=== PATIENT | female | born 1990 | race Caucasian/White ===

== ENCOUNTER 2016-07-28 22:12 | Emergency (ER) | payer SELFPAY ==
[2016-07-28 22:27] VITALS: RESP 18
[2016-07-28] MEDS ORDERED: IPRATROPIUM-ALBUTEROL 3 ML NEB INHALATION STA (22:46)
--- NOTE | 2016-07-28 22:48 | ED ---
URI HPI - General Chief Complaint: Upper Respiratory Infection Stated Complaint: FARHAT/x3 Time Seen by Provider: 07/28/16 22:31 Source: patient, RN notes reviewed Mode of arrival: wheelchair Limitations: no limitations - History of Present Illness Initial Comments: Patient is a 26-year-old female presents to the emergency room for evaluation of cough. Patient states she's had productive cough for the past 3 days. Patient does admit having history of asthma. Patient states she uses albuterol updrafts. Patient stated it is not helping her symptoms. Patient states been having increased shortness of breath due to coughing. Patient states that she also has been having a headache. Patient denies any dizziness or chest pain. Patient denies nausea vomiting, diarrhea or constipation. Patient denies receiving her influenza vaccine this year. Patient denies smoking. Patient states she's been having on and off chills and hot flashes. - Related Data Home Medications Medication Instructions Recorded Confirmed Albuterol Nebulized [Ventolin 2.5 mg INHALATION RT-Q6H PRN 12/16/15 07/28/16 Nebulized] Etonogestrel [Nexplanon ( 68 mg SQ DIRECTED 12/16/15 07/28/16 control implant)] Ibuprofen [Motrin] 600 mg PO Q6HR PRN 07/28/16 07/28/16 guaiFENesin [Mucinex] 600 mg PO Q12H PRN 07/28/16 07/28/16 Previous Rx's Medication Instructions Recorded Albuterol Nebulized [Ventolin 2.5 mg INHALATION Q6HR PRN #30 nebu 07/29/16 Nebulized] Azithromycin [Zithromax Z-pack] 250 mg PO DIRECTED #6 tab 07/29/16 predniSONE 40 mg PO DAILY #4 tab 07/29/16 Allergies Allergy/AdvReac Type Severity Reaction Status Date / Time tetanus and diphtheria AdvReac Unknown Verified 07/28/16 22:37 toxoids Childhood [tetanus & diphtheria toxoids] Review of Systems ROS Statement: Those systems with pertinent positive or pertinent negative responses have been documented in the HPI. ROS Other: All systems not noted in ROS Statement are negative. Past Medical History Past Medical History: Asthma History of Any Multi-Drug Resistant Organisms: None Reported Past Surgical History: Section, Cholecystectomy Past Anesthesia/Blood Transfusion Reactions: No Reported Reaction Past Psychological History: Anxiety Smoking Status: Former smoker Past Alcohol Use History: Occasional Past Drug Use History: None Reported - Past Family History Father Family Medical History: Coronary Artery Disease (CAD) General Exam - General Exam Comments Initial Comments: Sitting in exam room, no acute distress. Limitations: no limitations General appearance: alert, in no apparent distress Head exam: Present: atraumatic, normocephalic, normal inspection Eye exam: Present: normal appearance ENT exam: Present: normal exam Neck exam: Present: normal inspection Respiratory exam: Present: wheezes. Absent: respiratory distress Cardiovascular Exam: Present: normal rhythm, tachycardia, normal heart sounds GI/Abdominal exam: Present: soft, normal bowel sounds. Absent: distended, tenderness, guarding, rebound, rigid Extremities exam: Present: normal inspection Back exam: Present: normal inspection Neurological exam: Present: alert, oriented X3, CN II-XII intact, normal gait Psychiatric exam: Present: normal affect, normal mood Skin exam: Present: warm, dry, intact, normal color. Absent: rash Course Vital Signs 07/28/16 07/28/16 07/28/16 22:24 23:08 23:17 Temperature 99.5 F Pulse Rate 117 H 112 H 112 H Respiratory 18 Rate Blood Pressure 137/98 O2 Sat by Pulse 94 L Oximetry 07/28/16 07/29/16 23:59 00:48 Temperature 100.2 F H Pulse Rate 115 H Respiratory 18 18 Rate Blood Pressure 142/72 O2 Sat by Pulse 94 L 96 Oximetry Medical Decision Making - Medical Decision Making Patient is a 26-year-old female presents emergency room for evaluation of cough. Influenza negative. Chest x-ray significant for right middle lobe infiltrates. Patient will be placed on antibiotics and prednisone. Patient states she understands everything that was discussed with her. Return parameters discussed. - Lab Data Lab Results 07/28/16 Range/Units 22:55 Influenza Type A RNA Not Detected (Not Detectd) Influenza Type B (PCR) Not Detected (Not Detectd) - Radiology Data Radiology results: report reviewed, image reviewed Disposition Clinical Impression: Pneumonia Disposition: HOME SELF-CARE Condition: Good Instructions: Asthma (ED) Additional Instructions: Take medications as directed. Take Tylenol or Motrin as needed for fever. Please follow up with primary care provider in 1-2 days. If any new symptom arises or symptoms worsen, return to ER as soon as possible. Prescriptions: Albuterol Nebulized [Ventolin Nebulized] 2.5 mg INHALATION Q6HR PRN #30 nebu PRN Reason: Shortness Of Breath Azithromycin [Zithromax Z-pack] 250 mg PO DIRECTED #6 tab predniSONE 40 mg PO DAILY #4 tab Referrals: Anthony Rojas MD [Primary Care Provider] - 1-2 days Time of Disposition: 00:23
[2016-07-29 00:01] VITALS: BP 142/72; PULSE 115; TEMP 100.2
[2016-07-29] MEDS ORDERED: predniSONE 20 MG TAB PO STA (00:25)
--- NOTE | 2016-07-29 01:13 | XR ---
EXAMINATION TYPE: XR chest 2V DATE OF EXAM: 07/28/2016 11:47 PM COMPARISON: NONE HISTORY: History of cough congestion. TECHNIQUE: Frontal and lateral views of the chest are obtained. FINDINGS: Faint opacities are noted in the right lung base and is suspicious for mild active lung infiltrates i n the right middle lobe of lung. No pneumothorax or pleural effusion is noted. The cardiac silhouette size is within normal limits. The osseous structures are intact. IMPRESSION: Suspected mild active infiltrates in the right middle lobe of lung.
== END 2016-07-29 00:48 | disposition home or self-care (01) ==
LOC: EC 22:12
DX: J18.9 Pneumonia, unspecified organism (principal); J45.909 Unspecified asthma, uncomplicated; Z79.899 Other long term (current) drug therapy; Z79.3 Long term (current) use of hormonal contraceptives; Z88.7 Allergy status to serum and vaccine; Z87.891 Personal history of nicotine dependence
CPT/HCPCS: 94640; 87502; 71020; 99284; J7512

== ENCOUNTER 2016-11-29 12:55 | Observation (INO) | payer OTHER ==
[2016-11-29] MEDS ORDERED: methylPREDNISolone SOD SUCCI 125 MG/2 ML VIAL IV STA (13:46)
[2016-11-29] MEDS ORDERED: IPRATROPIUM-ALBUTEROL 3 ML NEB INHALATION STA ×2 (13:46→15:28)
--- NOTE | 2016-11-29 13:57 | ED ---
SOB HPI - General Chief Complaint: Shortness of Breath Stated Complaint: FARHAT/Asthma Time Seen by Provider: 11/29/16 13:25 Source: patient, RN notes reviewed Mode of arrival: ambulatory Limitations: no limitations - History of Present Illness Initial Comments: This is a 26-year-old female with a history of asthma states she had the onset yesterday of shortness of breath with a cough with yellow phlegm and some fevers chills and sweats during the evening. She has some chest tightness. She denies any nausea vomiting or other symptoms at this time. She is a former smoker she quit about 2 years ago. She does state that her home medications including nebulizer did not help. Additionally the patient denies any changes ( she does have a Norplant implant. MD Complaint: shortness of breath - Related Data Home Medications Medication Instructions Recorded Confirmed Albuterol Nebulized [Ventolin 2.5 mg INHALATION RT-Q6H PRN 12/16/15 11/29/16 Nebulized] Ibuprofen [Motrin] 400 mg PO Q6HR PRN 11/29/16 11/29/16 Loratadine [Claritin] 10 mg PO DAILY 11/29/16 11/29/16 Allergies Allergy/AdvReac Type Severity Reaction Status Date / Time tetanus and diphtheria AdvReac Unknown Verified 11/29/16 14:05 toxoids Childhood [tetanus & diphtheria toxoids] Review of Systems ROS Statement: Those systems with pertinent positive or pertinent negative responses have been documented in the HPI. ROS Other: All systems not noted in ROS Statement are negative. Past Medical History Past Medical History: Asthma History of Any Multi-Drug Resistant Organisms: None Reported Past Surgical History: Section, Cholecystectomy Past Anesthesia/Blood Transfusion Reactions: No Reported Reaction Past Psychological History: Anxiety Smoking Status: Former smoker Past Alcohol Use History: Occasional Past Drug Use History: None Reported - Past Family History Father Family Medical History: Coronary Artery Disease (CAD) General Exam - General Exam Comments Initial Comments: This is a well-developed well-nourished awake alert oriented 3 female she is audibly wheezing. Limitations: no limitations General appearance: alert, anxious, in distress Head exam: Present: atraumatic, normocephalic, normal inspection Eye exam: Present: normal appearance, PERRL, EOMI. Absent: scleral icterus, conjunctival injection, periorbital swelling ENT exam: Present: normal exam, mucous membranes moist Neck exam: Present: normal inspection. Absent: tenderness, meningismus, lymphadenopathy Respiratory exam: Present: wheezes, accessory muscle use, decreased breath sounds. Absent: respiratory distress, rales, rhonchi, stridor, chest wall tenderness Cardiovascular Exam: Present: normal rhythm, tachycardia, normal heart sounds. Absent: systolic murmur, diastolic murmur, rubs, gallop, clicks GI/Abdominal exam: Present: soft, normal bowel sounds. Absent: distended, tenderness, guarding, rebound, rigid Extremities exam: Present: normal inspection, full ROM, normal capillary refill. Absent: tenderness, pedal edema, joint swelling, calf tenderness Back exam: Present: normal inspection Neurological exam: Present: alert, oriented X3, CN II-XII intact Psychiatric exam: Present: normal affect, normal mood Skin exam: Present: warm, dry, intact, normal color. Absent: rash Course Vital Signs 11/29/16 11/29/16 11/29/16 13:00 13:48 13:55 Temperature 99.0 F Pulse Rate 119 H 117 H 120 H Respiratory 24 Rate Blood Pressure 188/97 O2 Sat by Pulse 94 L Oximetry 11/29/16 11/29/16 11/29/16 14:38 16:04 16:20 Temperature Pulse Rate 118 H 80 88 Respiratory 20 Rate Blood Pressure 162/96 O2 Sat by Pulse 93 L Oximetry - Reevaluation(s) Reevaluation #1: 11/29/16 15:29 Reevaluation patient to responsive therapy reveals very minimal improvement in aeration she still has diffuse wheezing she states she feels no better than when she got here. Further medication will be Reevaluation #2: 11/29/16 16:41 Evaluation of the patient after the repeat updraft reveals minimal improvement patient still has the [place] wheezing and dyspnea. Even with talking she still has dyspnea. She will be admitted and placed on IV antibiotics around-the- clock nebulizer treatment. The patient will be admitted to the hospitalist Medical Decision Making - Lab Data Result diagrams: 11/29/16 13:55 11/29/16 13:55 Lab Results 11/29/16 11/29/16 11/29/16 Range/Units 13:55 13:55 13:55 WBC 16.7 H (3.8-10.6) k/uL RBC 5.23 (3.80-5.40) m/uL Hgb 17.2 H (11.4-16.0) gm/dL Hct 48.1 H (34.0-46.0) % MCV 91.9 (80.0-100.0) fL MCH 32.8 (25.0-35.0) pg MCHC 35.7 (31.0-37.0) g/dL RDW 12.5 (11.5-15.5) % Plt Count 333 (150-450) k/uL Neutrophils % 89 % Lymphocytes % 6 % Monocytes % 3 % Eosinophils % 1 % Basophils % 1 % Neutrophils # 14.8 H (1.3-7.7) k/uL Lymphocytes # 1.0 (1.0-4.8) k/uL Monocytes # 0.5 (0-1.0) k/uL Eosinophils # 0.2 (0-0.7) k/uL Basophils # 0.1 (0-0.2) k/uL PT (9.0-12.0) sec INR (<1.1) APTT (22.0-30.0) sec Sodium 143 (137-145) mmol/L Potassium 3.7 (3.5-5.1) mmol/L Chloride 107 (98-107) mmol/L Carbon Dioxide 24 (22-30) mmol/L Anion Gap 12 mmol/L BUN 7 (7-17) mg/dL Creatinine 0.54 (0.52-1.04) mg/dL Est GFR (MDRD) Af Amer >60 (>60 ml/min/1.73 sqM) Est GFR (MDRD) Non-Af >60 (>60 ml/min/1.73 sqM) Glucose 104 H (74-99) mg/dL Calcium 10.0 (8.4-10.2) mg/dL Magnesium 1.9 (1.6-2.3) mg/dL Total Bilirubin 1.7 H (0.2-1.3) mg/dL AST 23 (14-36) U/L ALT 30 (9-52) U/L Alkaline Phosphatase 101 (38-126) U/L Total Creatine Kinase 84 (30-135) U/L CK-MB (CK-2) 1.9 (0.0-2.4) ng/mL CK-MB (CK-2) Rel Index 2.3 Troponin I <0.012 (0.000-0.034) ng/mL Total Protein 8.6 H (6.3-8.2) g/dL Albumin 4.9 (3.5-5.0) g/dL 11/29/16 Range/Units 13:55 WBC (3.8-10.6) k/uL RBC (3.80-5.40) m/uL Hgb (11.4-16.0) gm/dL Hct (34.0-46.0) % MCV (80.0-100.0) fL MCH (25.0-35.0) pg MCHC (31.0-37.0) g/dL RDW (11.5-15.5) % Plt Count (150-450) k/uL Neutrophils % % Lymphocytes % % Monocytes % % Eosinophils % % Basophils % % Neutrophils # (1.3-7.7) k/uL Lymphocytes # (1.0-4.8) k/uL Monocytes # (0-1.0) k/uL Eosinophils # (0-0.7) k/uL Basophils # (0-0.2) k/uL PT 10.3 (9.0-12.0) sec INR 1.0 (<1.1) APTT 23.8 (22.0-30.0) sec Sodium (137-145) mmol/L Potassium (3.5-5.1) mmol/L Chloride (98-107) mmol/L Carbon Dioxide (22-30) mmol/L Anion Gap mmol/L BUN (7-17) mg/dL Creatinine (0.52-1.04) mg/dL Est GFR (MDRD) Af Amer (>60 ml/min/1.73 sqM) Est GFR (MDRD) Non-Af (>60 ml/min/1.73 sqM) Glucose (74-99) mg/dL Calcium (8.4-10.2) mg/dL Magnesium (1.6-2.3) mg/dL Total Bilirubin (0.2-1.3) mg/dL AST (14-36) U/L ALT (9-52) U/L Alkaline Phosphatase (38-126) U/L Total Creatine Kinase (30-135) U/L CK-MB (CK-2) (0.0-2.4) ng/mL CK-MB (CK-2) Rel Index Troponin I (0.000-0.034) ng/mL Total Protein (6.3-8.2) g/dL Albumin (3.5-5.0) g/dL - EKG Data -: EKG Interpreted by Dc EKG shows normal: sinus rhythm (Sinus tachycardia with a rate of 103. Interval 136 QRS duration 78 QT/QTC of 352/461 st-t wave changes.) Disposition Clinical Impression: Status asthmaticus, Right middle lobe pneumonia, Leukocytosis Disposition: ADMITTED IP TO THIS HOSP Condition: Stable
[2016-11-29] MEDS: SODIUM CHLORIDE 0.9% 1,000 ML IV STA (14:09)
[2016-11-29 14:14] LABS: Basophils # (A) 0.1 k/uL (0-0.2); Basophils % (A) 1 %; CHCM 37.1; Eosinophils # (A) 0.2 k/uL (0-0.7); Eosinophils % (A) 1 %; HCT 48.1 % (34.0-46.0); HDW 2.64; HGB 17.2 gm/dL (11.4-16.0); Luc # (Auto) 0.16; Luc % (Auto) 1; Lymphocytes % (A) 6 %; MCH 32.8 pg (25.0-35.0); MCHC 35.7 g/dL (31.0-37.0); MCV 91.9 fL (80.0-100.0); Monocytes # (A) 0.5 k/uL (0-1.0); Monocytes % (A) 3 %; Neutrophils # (A) 14.8 k/uL (1.3-7.7); Neutrophils % (A) 89 %; RBC 5.23 m/uL (3.80-5.40); RDW 12.5 % (11.5-15.5); WBC 16.7 k/uL (3.8-10.6); WBC (Perox) 16.61
[2016-11-29 14:23] LABS: ALT 30 U/L (9-52); AST 23 U/L (14-36); Alkaline Phosphatase 101 U/L (38-126); Anion Gap 12 mmol/L; Blood Urea Nitrogen 7 mg/dL (7-17); Carbon Dioxide 24 mmol/L (22-30); Chloride 107 mmol/L (98-107); Glucose 104 mg/dL (74-99); Magnesium 1.9 mg/dL (1.6-2.3); Non-African American GFR(MDRD) >60 (>60 ml/min/1.73 sqM); Potassium 3.7 mmol/L (3.5-5.1); Sodium 143 mmol/L (137-145); Total Bilirubin 1.7 mg/dL (0.2-1.3); Total Protein 8.6 g/dL (6.3-8.2)
[2016-11-29 14:33] LABS: Partial Thromboplastin Time 23.8 sec (22.0-30.0); Prothrombin Time 10.3 sec (9.0-12.0)
[2016-11-29 14:35] LABS: Creatine Kinase 84 U/L (30-135)
--- NOTE | 2016-11-29 14:39 | XR ---
EXAMINATION TYPE: XR chest 2V DATE OF EXAM: 11/29/2016 2:33 PM COMPARISON: 07/28/2016 HISTORY: Difficulty in breathing TECHNIQUE: Frontal and lateral views of the chest are obtained. FINDINGS: Increased density right middle lobe may reflect developing infiltrate. Correlate clinically. No evidence for pnuemothorax.No pleural effusion. The cardiac silhouette size is within normal limits. The osseous structures are grossly intact. IMPRESSION: 1. Increased density right middle lobe may reflect developing infiltrate. Correlate clinically.
[2016-11-29 14:48] LABS: Creatine Kinase MB 1.9 ng/mL (0.0-2.4); Troponin I <0.012 ng/mL (0.000-0.034)
[2016-11-29] MEDS ORDERED: MAGNESIUM SULFATE-D5W PMX 1 GM in DEXTROSE/WATER 1 100ML.BAG IVPB ONE (15:30)
--- NOTE | 2016-11-29 16:43 | ED ---
Medical Decision Making - Lab Data Result diagrams: 11/29/16 13:55 11/29/16 13:55 Lab Results 11/29/16 11/29/16 11/29/16 Range/Units 13:55 13:55 13:55 WBC 16.7 H (3.8-10.6) k/uL RBC 5.23 (3.80-5.40) m/uL Hgb 17.2 H (11.4-16.0) gm/dL Hct 48.1 H (34.0-46.0) % MCV 91.9 (80.0-100.0) fL MCH 32.8 (25.0-35.0) pg MCHC 35.7 (31.0-37.0) g/dL RDW 12.5 (11.5-15.5) % Plt Count 333 (150-450) k/uL Neutrophils % 89 % Lymphocytes % 6 % Monocytes % 3 % Eosinophils % 1 % Basophils % 1 % Neutrophils # 14.8 H (1.3-7.7) k/uL Lymphocytes # 1.0 (1.0-4.8) k/uL Monocytes # 0.5 (0-1.0) k/uL Eosinophils # 0.2 (0-0.7) k/uL Basophils # 0.1 (0-0.2) k/uL PT (9.0-12.0) sec INR (<1.1) APTT (22.0-30.0) sec Sodium 143 (137-145) mmol/L Potassium 3.7 (3.5-5.1) mmol/L Chloride 107 (98-107) mmol/L Carbon Dioxide 24 (22-30) mmol/L Anion Gap 12 mmol/L BUN 7 (7-17) mg/dL Creatinine 0.54 (0.52-1.04) mg/dL Est GFR (MDRD) Af Amer >60 (>60 ml/min/1.73 sqM) Est GFR (MDRD) Non-Af >60 (>60 ml/min/1.73 sqM) Glucose 104 H (74-99) mg/dL Calcium 10.0 (8.4-10.2) mg/dL Magnesium 1.9 (1.6-2.3) mg/dL Total Bilirubin 1.7 H (0.2-1.3) mg/dL AST 23 (14-36) U/L ALT 30 (9-52) U/L Alkaline Phosphatase 101 (38-126) U/L Total Creatine Kinase 84 (30-135) U/L CK-MB (CK-2) 1.9 (0.0-2.4) ng/mL CK-MB (CK-2) Rel Index 2.3 Troponin I <0.012 (0.000-0.034) ng/mL Total Protein 8.6 H (6.3-8.2) g/dL Albumin 4.9 (3.5-5.0) g/dL 11/29/16 Range/Units 13:55 WBC (3.8-10.6) k/uL RBC (3.80-5.40) m/uL Hgb (11.4-16.0) gm/dL Hct (34.0-46.0) % MCV (80.0-100.0) fL MCH (25.0-35.0) pg MCHC (31.0-37.0) g/dL RDW (11.5-15.5) % Plt Count (150-450) k/uL Neutrophils % % Lymphocytes % % Monocytes % % Eosinophils % % Basophils % % Neutrophils # (1.3-7.7) k/uL Lymphocytes # (1.0-4.8) k/uL Monocytes # (0-1.0) k/uL Eosinophils # (0-0.7) k/uL Basophils # (0-0.2) k/uL PT 10.3 (9.0-12.0) sec INR 1.0 (<1.1) APTT 23.8 (22.0-30.0) sec Sodium (137-145) mmol/L Potassium (3.5-5.1) mmol/L Chloride (98-107) mmol/L Carbon Dioxide (22-30) mmol/L Anion Gap mmol/L BUN (7-17) mg/dL Creatinine (0.52-1.04) mg/dL Est GFR (MDRD) Af Amer (>60 ml/min/1.73 sqM) Est GFR (MDRD) Non-Af (>60 ml/min/1.73 sqM) Glucose (74-99) mg/dL Calcium (8.4-10.2) mg/dL Magnesium (1.6-2.3) mg/dL Total Bilirubin (0.2-1.3) mg/dL AST (14-36) U/L ALT (9-52) U/L Alkaline Phosphatase (38-126) U/L Total Creatine Kinase (30-135) U/L CK-MB (CK-2) (0.0-2.4) ng/mL CK-MB (CK-2) Rel Index Troponin I (0.000-0.034) ng/mL Total Protein (6.3-8.2) g/dL Albumin (3.5-5.0) g/dL Critical Care Time Critical Care Time: Yes Critical Care Time: 31 minutes which includes initial presentation with history physical labs and x- rays. Multiple re-evaluations the patient response to therapy. Discussion with the patient regarding the findings and the need for admission. Discussed with the hospitalist initial inpatient orders and documentation of the above. Disposition Clinical Impression: Status asthmaticus, Right middle lobe pneumonia, Leukocytosis Disposition: ADMITTED IP TO THIS [facility] Condition: Stable Referrals: Anthony Rojas MD [Primary Care Provider] - 1-2 days
[2016-11-29] MEDS ORDERED: PNEUMONIA PROTOCOL UTILIZED 1 EACH MISC PO PRN (16:44)
[2016-11-29] MEDS ORDERED: AZITHROMYCIN 500 MG in SODIUM CHLORIDE 0.9% 250 ML IVPB STA (16:44)
[2016-11-29] MEDS ORDERED: IBUPROFEN 200 MG TAB PO PRN (16:46)
[2016-11-29] MEDS ORDERED: ALBUTEROL NEBULIZED 2.5 MG/3 ML INHALATION PRN (18:27)
[2016-11-29] MEDS: methylPREDNISolone SOD SUCCI 125 MG/2 ML VIAL IV SCH (18:42)
[2016-11-29] MEDS: ALBUTEROL NEBULIZED 2.5 MG/3 ML INHALATION SCH ×2 (18:53→22:45)
[2016-11-29] MEDS ORDERED: IPRATROPIUM-ALBUTEROL 3 ML NEB INHALATION SCH (20:00)
[2016-11-29] MEDS: ACETAMINOPHEN TAB 500 MG TAB PO PRN (20:53)
[2016-11-29] MEDS: BUDESONIDE 1 MG/2 ML NEBU INHALATION SCH (23:36)
[2016-11-30] MEDS: methylPREDNISolone SOD SUCCI 125 MG/2 ML VIAL IV SCH
[2016-11-30] MEDS: ALBUTEROL NEBULIZED 2.5 MG/3 ML INHALATION SCH ×5 (02:47→20:40)
[2016-11-30] MEDS: SODIUM CHLORIDE 0.9% 1,000 ML IV STA ×3 (04:24→23:10)
[2016-11-30] MEDS: BUDESONIDE 1 MG/2 ML NEBU INHALATION SCH ×2 (07:35→20:30)
--- NOTE | 2016-11-30 07:44 | HP ---
DATE OF ADMISSION: 11/29/2016 PRESENTING COMPLAINT: Short of breath, wheezing. HISTORY OF PRESENTING COMPLAINT: This is a 26-year-old patient of Dr. Rojas who has had asthma since , never really had a previous hospitalization. Patient was working outside, also has got a history of allergies, then started having a runny nose, became warm, and started wheezing, short of breath, cough, minimal sputum, admitted with acute asthma exacerbation. Mother is at the bedside. REVIEW OF SYSTEMS: CONSTITUTIONAL: Tired. HEENT: As above. RESPIRATORY: As above. CARDIOVASCULAR: None. GASTROINTESTINAL: None. GENITOURINARY: None. MUSCULOSKELETAL: None. DERMATOLOGICAL: None. HEMATOLOGICAL: None. LYMPHATIC: None. PSYCHIATRY: None. NEUROLOGICAL: None. Past medical history of asthma, allergies, -induced hypertension, -induced diabetes. PAST SURGICAL HISTORY: , cholecystectomy, tooth retraction. SOCIAL HISTORY: Patient smoked for 2 years; stopped in 2014, smoked about a pack a day, did medical marijuana. Family history of coronary artery disease, hyperlipidemia. HOME MEDICATIONS: 1. Claritin 10 mg p.o. daily. 2. Motrin 400 mg q.6 p.r.n. 3. Ventolin 2.5 q.6 p.r.n. Allergies to TETANUS and DIPHTHERIA. On examination, temperature 100.8, pulse 101, respiration 18, blood pressure 160/97, pulse ox 91% on 2 L. GENERAL APPEARANCE: Well built, BMI of 37.7. Sitting up, short of breath. EYES: Pupils equal, conjunctivae normal. HEENT: Oral cavity normal. NECK: JVD not raised. Mass not palpable. Respiratory effort increased. LUNGS: Diminished breath sounds. Prolonged expiration and wheezing. CARDIOVASCULAR: First and second sounds normal. No edema. ABDOMEN: Soft, nontender. Liver and spleen not palpable. LYMPHATIC: No lymphs palpable in neck or axillae. PSYCHIATRY: Alert and oriented x3. Mood and affect is normal. NEUROLOGICAL: Pupils are equal. Cranial nerves grossly intact. Power and sensation grossly intact. INVESTIGATIONS: White count 6.7, hemoglobin 7.2. Potassium 3.7. Chest x-ray increased density in right middle lobe, measured infiltrate. ASSESSMENT: 1. Acute obstructive asthma exacerbation secondary to right middle lobe pneumonia, present on admission. 2. Obesity; body mass index of 37.7. 3. Chronic allergies. PLAN: Patient was started on nebulized bronchodilator, inhaled steroids, antibiotics including ceftriaxone and Zithromax. Care was discussed with the patient, her mother at the bedside.
[2016-11-30] MEDS: ACETAMINOPHEN TAB 500 MG TAB PO PRN ×2 (08:09→17:10)
[2016-11-30] MEDS: LORATADINE 10 MG TAB PO SCH (08:10)
[2016-11-30] MEDS: ENOXAPARIN 40 MG/0.4 ML SYRINGE SQ SCH (08:11)
[2016-11-30] MEDS: methylPREDNISolone SOD SUCCI 40 MG/ML 1 ML VIAL IV SCH ×2 (08:11→17:08)
--- NOTE | 2016-11-30 08:21 | XR ---
EXAMINATION TYPE: XR chest 2V DATE OF EXAM: 11/30/2016 7:22 AM COMPARISON: 11/29/2016 HISTORY: 26 year-old female follow-up pneumonia TECHNIQUE: Frontal and lateral views FINDINGS: The cardiomediastinal silhouette, aorta, and pulmonary vasculature are within normal limits. Redemons trated patchy infiltrate within the right lower lung. No progressive consolidation or pleural effusio n. IMPRESSION: Similar right lower lobe pneumonia
[2016-11-30] MEDS: AZITHROMYCIN 500 MG TAB PO SCH (13:02)
--- NOTE | 2016-11-30 15:21 | PN ---
DATE OF SERVICE: 11/30/2016 PRESENTING COMPLAINT: Shortness of breath, wheezing. INTERVAL HISTORY: This is a 26-year-old female who has had asthma since with no previous hospitalizations. Patient was doing outside yard work, began having A runny nose, became warm, started wheezing, increasing shortness of breath, cough, minimal sputum. Patient was admitted from the emergency department with acute asthma exacerbation. Today, patient is resting comfortably in bed, boyfriend at the bedside. Patient looks and states she feels much more comfortable, breathing is easier, slept through the night. Review of systems done for constitutional, cardiovascular, gastrointestinal, pulmonary, with relevant findings as above. CURRENT MEDICATIONS: Albuterol, Zithromax, Pulmicort, Lovenox, Solu-Medrol. PHYSICAL EXAM: VITAL SIGNS: Temperature 97.9, pulse 107, respiratory rate 16, blood pressure 138/78, oxygen saturation 95% on room air. GENERAL APPEARANCE: Patient is lying in bed looking comfortable. No acute distress noted or voiced. EYES: Pupils equal. Conjunctivae are normal. NECK: JVD not raised. Mass not palpable. LUNGS: Anteriorly wheezing noted, posteriorly decreased wheezing. However, diminished breath sounds, scattered crackles throughout. Respiratory effort normal. Moderately labored. CARDIOVASCULAR: S1, S2 normal. No edema noted. ABDOMEN: Soft, nontender. Liver and spleen not palpable. PSYCHIATRY: Alert and oriented x3. Mood and affect are normal. INVESTIGATIONS: No new lab work. Chest x-ray, cardiomediastinal silhouette, aorta and pulmonary vasculature within normal limits. Redemonstrated patchy infiltrate within the right lower lung, no progressive consolidation or pleural effusion. Overall impression similar right lower lobe pneumonia. ASSESSMENT: 1. Acute obstructive asthma exacerbation secondary to right middle lobe pneumonia, present on admission. 2. Obesity; body mass index of 37.7. 3. Chronic allergies. PLAN: Patient continues on nebulized bronchodilators, inhaled steroids, antibiotics, including ceftriaxone and Zithromax. Plan of care was discussed with the patient and her boyfriend at bedside. Patient was seen and examined by a nurse practitioner, Raisa Up and elements of care discussed with attending, Dr. Gutierrez.
[2016-12-01] MEDS: ALBUTEROL NEBULIZED 2.5 MG/3 ML INHALATION SCH ×4 (00:17→12:21)
[2016-12-01] MEDS: methylPREDNISolone SOD SUCCI 40 MG/ML 1 ML VIAL IV SCH ×3 (00:36→15:50)
[2016-12-01 06:55] LABS: Basophils % (A) 0 %; CH 33.8; CHCM 35.5; Eosinophils % (A) 0 %; HCT 41.9 % (34.0-46.0); HDW 2.59; HGB 14.4 gm/dL (11.4-16.0); Luc # (Auto) 0.09; Luc % (Auto) 1; Lymphocytes # (A) 0.9 k/uL (1.0-4.8); Lymphocytes % (A) 5 %; MCH 32.8 pg (25.0-35.0); MCHC 34.3 g/dL (31.0-37.0); MCV 95.7 fL (80.0-100.0); Mean Platelet Volume 7.4; Monocytes # (A) 0.6 k/uL (0-1.0); Monocytes % (A) 3 %; Neutrophils # (A) 16.2 k/uL (1.3-7.7); Neutrophils % (A) 91 %; RBC 4.38 m/uL (3.80-5.40); RDW 12.7 % (11.5-15.5); WBC 17.8 k/uL (3.8-10.6)
[2016-12-01 07:06] LABS: Anion Gap 8 mmol/L; Blood Urea Nitrogen 14 mg/dL (7-17); Calcium 8.8 mg/dL (8.4-10.2); Carbon Dioxide 21 mmol/L (22-30); Chloride 113 mmol/L (98-107); Glucose 140 mg/dL (74-99); Non-African American GFR(MDRD) >60 (>60 ml/min/1.73 sqM); Potassium 4.3 mmol/L (3.5-5.1); Sodium 142 mmol/L (137-145)
--- NOTE | 2016-12-01 07:38 | PN ---
DATE OF SERVICE: 11/30/2016 ATTENDING NOTE: This patient was seen and examined by me. I reviewed the note of my nurse practitioner, Ms. Up, agree with the same except for any changes below. This patient presented with asthma exacerbation, pneumonia. Still got a cough, wheezing, though shade better. Did tolerate some diet. Sitting on bed, getting a nebulized treatment. ON EXAMINATION: LUNGS: Decreased breath sounds, poor expiration and wheezing, short of breath at rest. CARDIOVASCULAR: First and second sounds normal. Chest x-ray shows right middle/lower lobe infiltrate. ASSESSMENT: 1. Mild persistent asthma with acute exacerbation secondary to right middle lobe pneumonia, suspect gram-negative organism, present on admission, slow to respond. 2. Obesity, body mass index of 37.7. 3. Leukocytosis, probably from underlying infection. 4. Chronic allergies. PLAN: Care was discussed with the patient. Suspect the patient to be in for at least 2 more days. Encourage the patient to be out of bed.
[2016-12-01] MEDS: AZITHROMYCIN 500 MG TAB PO SCH (08:22)
[2016-12-01] MEDS: LORATADINE 10 MG TAB PO SCH (08:22)
[2016-12-01] MEDS: ENOXAPARIN 40 MG/0.4 ML SYRINGE SQ SCH (08:23)
[2016-12-01] MEDS: BUDESONIDE 1 MG/2 ML NEBU INHALATION SCH (08:46)
[2016-12-01] MEDS: ACETAMINOPHEN TAB 500 MG TAB PO PRN (10:05)
[2016-12-01 13:09] VITALS: PULSE 76
[2016-12-01 16:03] VITALS: BP 147/98; RESP 18; TEMP 98
--- NOTE | 2016-12-02 10:35 | DS ---
DATE OF ADMISSION: 11/29/2016 DATE OF DISCHARGE: 12/01/2016 FINAL DIAGNOSES: 1. Right middle lobe pneumonia suspect gram-negative organism, present on admission causing acute exacerbation of mild persistent asthma, present on admission. 2. Obesity, body mass index of 37.1. 3. Leukocytosis probably from underlying infection. 4. Chronic allergies. HOSPITAL COURSE: This very pleasant lady/girl presented with acute asthma exacerbation secondary to right middle lobe pneumonia . The patient doing much better at the time of discharge. ON EXAM: LUNGS: Mild wheezing. CARDIOVASCULAR: First and second seconds normal. Patient is up and about, tolerating a diet. DISCHARGE MEDICATIONS: 1. Ventolin 2.5 nebulizer q.6 p.r.n. 2. Motrin 400 mg q.6 p.r.n. 3. Claritin 10 mg daily. 4. Ventolin HFA 1 to 2 puffs q.6 p.r.n. 5. Pulmicort 2 puffs b.i.d. 6. Levaquin 250 mg a day for 5 days. 7. Prednisone taper. Follow up with Dr. Rojas in 3 days.
== END 2016-12-01 16:20 | disposition home or self-care (01) ==
LOC: EC 12:55 → 6PED 16:44
PROVIDERS: ADMIT Hospitalist; ATTEND Hospitalist
DX: J18.9 Pneumonia, unspecified organism (principal); J45.31 Mild persistent asthma with (acute) exacerbation; E66.9 Obesity, unspecified; Z68.37 Body mass index [BMI] 37.0-37.9, adult; D72.829 Elevated white blood cell count, unspecified; Z87.891 Personal history of nicotine dependence; Z79.899 Other long term (current) drug therapy; Z88.7 Allergy status to serum and vaccine; Z82.49 Family history of ischemic heart disease and other diseases of the circulatory system
CPT/HCPCS: 96361 ×3; 96366 ×2; 96372 ×2; 96365; 96367; 96375; 99291; 36415; 94640 ×6; 94760; 93005; 80053; 80048; 82550; 82553; 83605; 83735; 84484; 85025 ×2; 85610; 85730; 87040; 71020 ×2; G0378 ×3; J2920 ×2; J2930 ×2; J0456; J1650 ×2; J0696 ×3; J3475; 99285

== ENCOUNTER 2017-05-02 17:02 | Emergency (ER) | payer OTHER ==
[2017-05-02] MEDS ORDERED: methylPREDNISolone SOD SUCCI 125 MG/2 ML VIAL IV STA (17:53)
[2017-05-02] MEDS ORDERED: IPRATROPIUM-ALBUTEROL 3 ML NEB INHALATION STA ×2 (17:53→18:54)
--- NOTE | 2017-05-02 17:56 | ED ---
General Adult HPI - General Chief complaint: Shortness of Breath Stated complaint: FARHAT/Cough/Congestion Time Seen by Provider: 05/02/17 17:47 Source: patient, RN notes reviewed Mode of arrival: ambulatory Limitations: no limitations - History of Present Illness Initial comments: Patient 26-year-old female seen in past medical history for asthma, who presents emergency room today with a chief complaint of increased cough congestion and shortness of breath over the last day. She does admit that symptoms started last night. She states that her nebulized treatments do not seem to be working. Patient is that she had similar symptoms recently just a few months ago and she was diagnosed with pneumonia. Patient denies any other complaints or associated symptoms currently. Patient denies any recent fever, chills, chest pain, back pain, abdominal pain, nausea or vomiting, numbness or tingling, dysuria or hematuria, constipation or diarrhea, headaches or visual changes, or any other complaints. - Related Data Home Medications Medication Instructions Recorded Confirmed Albuterol Nebulized [Ventolin 2.5 mg INHALATION RT-Q4H 12/16/15 05/02/17 Nebulized] Loratadine [Claritin] 10 mg PO DAILY PRN 11/29/16 05/02/17 Previous Rx's Medication Instructions Recorded Albuterol Inhaler [Ventolin Hfa 1 - 2 puff INHALATION Q4-6H PRN #1 05/02/17 Inhaler] inhaler Azithromycin [Zithromax Z-pack] 0 mg PO DIRECTED #6 tab 05/02/17 predniSONE 60 mg PO DAILY 5 Days 05/02/17 Allergies Allergy/AdvReac Type Severity Reaction Status Date / Time tetanus and diphtheria Allergy Unknown Verified 05/02/17 18:31 toxoids Childhood [tetanus & diphtheria toxoids] Review of Systems ROS Statement: Those systems with pertinent positive or pertinent negative responses have been documented in the HPI. ROS Other: All systems not noted in ROS Statement are negative. Past Medical History Past Medical History: Asthma Additional Past Medical History / Comment(s): DURING HER HAD HYPERTENSION AND GESTATIONAL DM. ECZEMA, LOW THYROID NOT DR WATCHING WILL RETEST IN FEW MONHTS-NO MEDS TAKEN YET, ANXIETY. CONTROL IMPLANT IN LT ARM History of Any Multi-Drug Resistant Organisms: None Reported Past Surgical History: Section, Cholecystectomy Additional Past Surgical History / Comment(s): TOOTH EXTRACTIONS Past Anesthesia/Blood Transfusion Reactions: No Reported Reaction Past Psychological History: Anxiety Smoking Status: Former smoker - Past Family History Father Family Medical History: Coronary Artery Disease (CAD), Hyperlipidemia Additional Family Medical History / Comment(s): SINUS TACHYCARDIA. DAD'S MOM FROM AAA Mother Family Medical History: Asthma Additional Family Medical History / Comment(s): DDD, HIATAL HERNIA. SEASONAL ALLERGIES General Exam - General Exam Comments Initial Comments: General: The patient is awake and alert, in no distress, and does not appear acutely ill. Eye: Pupils are equal, round and reactive to light, extra-ocular movements are intact. No nystagmus. There is normal conjunctiva bilaterally. No signs of icterus. Ears, nose, mouth and throat: There are moist mucous membranes and no oral lesions. Neck: The neck is supple, there is no tenderness or JVD. Cardiovascular: There is a regular rate and rhythm. No murmur, rub or gallop is appreciated. Respiratory: Bilateral expiratory wheeze, respirations are non-labored, breath sounds are equal. No stridor, rales, or rhonchi. Musculoskeletal: Normal ROM, no tenderness. Strength 5/5. Sensation intact. Pulses equal bilaterally 2+. Neurological: A&O x 3. CN II-XII intact, There are no obvious motor or sensory deficits. Coordination appears grossly intact. Speech is normal. Skin: Skin is warm and dry and no rashes or lesions are noted. Psychiatric: Cooperative, appropriate mood & affect, normal judgment. Limitations: no limitations Course Vital Signs 05/02/17 05/02/17 05/02/17 17:20 18:17 18:18 Temperature 97.9 F Pulse Rate 94 104 H Respiratory 28 H 18 Rate Blood Pressure 148/89 O2 Sat by Pulse 93 L Oximetry 05/02/17 05/02/17 05/02/17 18:26 19:10 19:21 Temperature Pulse Rate 104 H 101 H 99 Respiratory Rate Blood Pressure O2 Sat by Pulse Oximetry 05/02/17 19:27 Temperature 98.4 F Pulse Rate 104 H Respiratory 18 Rate Blood Pressure 155/94 O2 Sat by Pulse 97 Oximetry Medical Decision Making - Medical Decision Making Patient reexamined at this time shows no signs of distress. She states she is feeling much better after breathing treatments. Lung sounds are much improved still mild wheezing on expiration. Patient was given 2 breathing treatments. Given steroids site Medrol 125 IV. Patient's labs been reviewed. Patient's chest x-ray does show an improved pneumonia from several months ago. Options were discussed with patient about admission versus outpatient treatment. She states she feels couple pain discharged home at this time. We'll be treated with both an antibiotic and steroids and advised follow-up the family doctor over the next 2 days. Advised return here to the emergency room symptoms increase worsen or for any other concerns. - Lab Data Result diagrams: 05/02/17 18:10 05/02/17 18:10 Lab Results 05/02/17 05/02/17 Range/Units 18:10 18:10 WBC 11.6 H (3.8-10.6) k/uL RBC 5.13 (3.80-5.40) m/uL Hgb 16.6 H (11.4-16.0) gm/dL Hct 47.2 H (34.0-46.0) % MCV 92.2 (80.0-100.0) fL MCH 32.4 (25.0-35.0) pg MCHC 35.2 (31.0-37.0) g/dL RDW 13.0 (11.5-15.5) % Plt Count 339 (150-450) k/uL Neutrophils % 74 % Lymphocytes % 14 % Monocytes % 4 % Eosinophils % 6 % Basophils % 1 % Neutrophils # 8.5 H (1.3-7.7) k/uL Lymphocytes # 1.6 (1.0-4.8) k/uL Monocytes # 0.5 (0-1.0) k/uL Eosinophils # 0.7 (0-0.7) k/uL Basophils # 0.1 (0-0.2) k/uL Sodium 141 (137-145) mmol/L Potassium 4.0 (3.5-5.1) mmol/L Chloride 105 (98-107) mmol/L Carbon Dioxide 21 L (22-30) mmol/L Anion Gap 15 mmol/L BUN 6 L (7-17) mg/dL Creatinine 0.62 (0.52-1.04) mg/dL Est GFR (MDRD) Af Amer >60 (>60 ml/min/1.73 sqM) Est GFR (MDRD) Non-Af >60 (>60 ml/min/1.73 sqM) Glucose 88 (74-99) mg/dL Calcium 9.6 (8.4-10.2) mg/dL Disposition Clinical Impression: Asthma exacerbation Disposition: HOME SELF-CARE Condition: Good Instructions: Bronchospasm (ED) Additional Instructions: Please use medication as discussed. Please follow-up with family doctor in the next 2 days of symptoms have not improved. Please return to emergency room if the symptoms increase or worsen or for any other concerns. Prescriptions: Albuterol Inhaler [Ventolin Hfa Inhaler] 1 - 2 puff INHALATION Q4-6H PRN #1 inhaler PRN Reason: Cough Azithromycin [Zithromax Z-pack] 0 mg PO DIRECTED #6 tab predniSONE 60 mg PO DAILY 5 Days Referrals: Anthony Rojas MD [Primary Care Provider] - 1-2 days Time of Disposition: 19:35
[2017-05-02 18:19] VITALS: RESP 18
[2017-05-02 18:34] LABS: Anion Gap 15 mmol/L; Basophils # (A) 0.1 k/uL (0-0.2); Basophils % (A) 1 %; Blood Urea Nitrogen 6 mg/dL (7-17); Calcium 9.6 mg/dL (8.4-10.2); Carbon Dioxide 21 mmol/L (22-30); Chloride 105 mmol/L (98-107); Eosinophils # (A) 0.7 k/uL (0-0.7); Eosinophils % (A) 6 %; Glucose 88 mg/dL (74-99); HCT 47.2 % (34.0-46.0); HDW 2.52; HGB 16.6 gm/dL (11.4-16.0); Luc # (Auto) 0.15; Luc % (Auto) 1; Lymphocytes # (A) 1.6 k/uL (1.0-4.8); Lymphocytes % (A) 14 %; MCH 32.4 pg (25.0-35.0); MCHC 35.2 g/dL (31.0-37.0); MCV 92.2 fL (80.0-100.0); Mean Platelet Volume 7.6; Monocytes # (A) 0.5 k/uL (0-1.0); Monocytes % (A) 4 %; Neutrophils # (A) 8.5 k/uL (1.3-7.7); Neutrophils % (A) 74 %; Non-African American GFR(MDRD) >60 (>60 ml/min/1.73 sqM); RBC 5.13 m/uL (3.80-5.40); Sodium 141 mmol/L (137-145); WBC 11.6 k/uL (3.8-10.6); WBC (Perox) 11.43
--- NOTE | 2017-05-02 18:49 | XR ---
EXAMINATION TYPE: XR chest 2V DATE OF EXAM: 05/02/2017 COMPARISON: 11/30/2016 HISTORY: Pneumonia. Cough. TECHNIQUE: Frontal and lateral views of the chest are obtained. FINDINGS: Heart and mediastinum are normal. Lungs are clear. Diaphragm is normal. Bony thorax appear s normal. IMPRESSION: Normal chest.. There is clearing of pneumonia in the right middle lobe compared to old e xam.
[2017-05-02 19:28] VITALS: BP 155/94; PULSE 104; TEMP 98.4
== END 2017-05-02 19:27 | disposition home or self-care (01) ==
LOC: EC 17:02
DX: J45.901 Unspecified asthma with (acute) exacerbation (principal); Z82.5 Family history of asthma and other chronic lower respiratory diseases; Z87.891 Personal history of nicotine dependence; Z88.7 Allergy status to serum and vaccine; Z79.899 Other long term (current) drug therapy
CPT/HCPCS: 99285 ×2; 96374 ×2; 36415; 94640 ×2; 80048; 85025; 71020; J2930

== ENCOUNTER → 2017-10-18 | Outpatient (CLI) | payer OTHER ==
[2017-10-18 10:27] LABS: Basophils # (A) 0.1 k/uL (0-0.2); Basophils % (A) 1 %; Eosinophils # (A) 0.8 k/uL (0-0.7); Eosinophils % (A) 11 %; HGB 15.8 gm/dL (11.4-16.0); Lymphocytes # (A) 1.9 k/uL (1.0-4.8); Lymphocytes % (A) 24 %; MCH 31.1 pg (25.0-35.0); MCHC 35.8 g/dL (31.0-37.0); Mean Platelet Volume 7.3; Monocytes # (A) 0.4 k/uL (0-1.0); Monocytes % (A) 5 %; Neutrophils # (A) 4.5 k/uL (1.3-7.7); Neutrophils % (A) 57 %; Platelet Count 359 k/uL (150-450); RBC 5.06 m/uL (3.80-5.40); RDW 11.9 % (11.5-15.5); WBC 7.8 k/uL (3.8-10.6)
[2017-10-18 14:09] LABS: Total Eosinophil Count 858 #EOS/uL (150-300)
[2017-10-18 19:33] LABS: Alternaria alternata IgE <0.10 kU/L; Cat Epith & Dander IgE 6.67 kU/L; Cockroach IgE <0.10 kU/L; Dermato. farinae IgE <0.10 kU/L; Dog Dander IgE 0.26 kU/L; Elm IgE 0.96 kU/L; Maple (Box Elder) IgE <0.10 kU/L; Oak IgE 0.16 kU/L; Ragweed,Common IgE 8.69 kU/L; Red Top (Bentgrass) IgE <0.10 kU/L
== END | disposition home or self-care (01) ==
LOC: LABWHC1 09:57
PROVIDERS: ATTEND Internal Medicine
DX: J45.909 Unspecified asthma, uncomplicated (principal)
CPT/HCPCS: 36415; 82785; 85008; 85025; 86003

== ENCOUNTER 2017-12-31 23:26 | Emergency (ER) | payer OTHER ==
--- NOTE | 2018-01-01 00:12 | ED ---
Abdominal Pain HPI - General Chief Complaint: Abdominal Pain Stated Complaint: abdominal pain Time Seen by Provider: 12/31/17 23:53 Source: patient, RN notes reviewed Mode of arrival: ambulatory Limitations: no limitations - History of Present Illness Initial Comments: This is a 27-year-old female presents to the emergency department with chief complaint of abdominal pain. Patient states that a few days ago she noticed a change in color and smell of her urine. She states that she also had increase in urinary frequency and intermittent low abdominal pain. She presents to the urgent care today and was diagnosed with a UTI. She was prescribed an antibiotic but is unsure what antibiotic this was. She states she is here to pick it up from the pharmacy. Patient states that she is currently on her period. She states that she had a negative test today at the urgent care. Patient states after leaving urgent care her low abdominal pain increased. She describes it as intermittent, sharp and stabbing. She denies any nausea or vomiting, fevers or chills, diarrhea or constipation. She denies chest pain or shortness of breath. Denies any abnormal vaginal discharge. - Related Data Previous Rx's Medication Instructions Recorded Sulfamethox-Tmp 800-160Mg [Bactrim 1 tab PO Q12HR #14 tab 01/01/18 DS 800-160 mg] Allergies Allergy/AdvReac Type Severity Reaction Status Date / Time tetanus and diphtheria Allergy Unknown Verified 12/31/17 23:33 toxoids Childhood [tetanus & diphtheria toxoids] Review of Systems ROS Statement: Those systems with pertinent positive or pertinent negative responses have been documented in the HPI. ROS Other: All systems not noted in ROS Statement are negative. Past Medical History Past Medical History: Asthma Additional Past Medical History / Comment(s): DURING HER HAD HYPERTENSION AND GESTATIONAL DM. ECZEMA, LOW THYROID NOT DR WATCHING WILL RETEST IN FEW MONHTS-NO MEDS TAKEN YET, ANXIETY. CONTROL IMPLANT IN LT ARM History of Any Multi-Drug Resistant Organisms: None Reported Past Surgical History: Section, Cholecystectomy Additional Past Surgical History / Comment(s): TOOTH EXTRACTIONS Past Anesthesia/Blood Transfusion Reactions: No Reported Reaction Past Psychological History: Anxiety Smoking Status: Former smoker Past Alcohol Use History: Occasional Past Drug Use History: None Reported - Past Family History Father Family Medical History: Coronary Artery Disease (CAD), Hyperlipidemia Additional Family Medical History / Comment(s): SINUS TACHYCARDIA. DAD'S MOM FROM AAA Mother Family Medical History: Asthma Additional Family Medical History / Comment(s): DDD, HIATAL HERNIA. SEASONAL ALLERGIES General Exam - General Exam Comments Initial Comments: General: Awake and alert, well-developed; in no apparent distress. HEENT: Head atraumatic, normocephalic. Pupils are equal, round and reactive to light. Extraocular movements intact. Oropharynx moist without erythema or exudate. Neck: Supple. Normal ROM. Cardiovascular: Regular rate and rhythm. No murmurs, rubs or gallops. Chest symmetrical. Respiratory: Lungs clear to auscultation bilaterally. No wheezes, rales or rhonchi. Normal respiratory effort with no use of accessory muscles. Abdomen: Soft, non-tender, non-distended. No rigidity, rebound or guarding. Normal bowel sounds in all 4 quadrants. Musculoskeletal: Normal ROM, no tenderness bilateral upper and lower extremities. Ambulating normally. Skin: [place], warm and dry without rashes or lesions. Neurological: Alert and oriented x3. CN II-XII grossly intact. Speech is fluent and answers are appropriate. No focal neuro deficits. Psychiatric: Normal mood and affect. No overt signs of depression or anxiety noted. Limitations: no limitations External exam: Present: normal external exam. Absent: erythema, swelling, lesions, lacerations Speculum exam: Present: normal speculum exam. Absent: erythema, vaginal discharge, cervical discharge, vaginal bleeding By manual exam: Present: normal by manual exam. Absent: cervical motion tenderness, adnexal tenderness, uterine tenderness Course Vital Signs 12/31/17 01/01/18 23:31 00:08 Temperature 98.2 F Pulse Rate 89 71 Respiratory 18 20 Rate Blood Pressure 167/129 136/91 O2 Sat by Pulse 98 97 Oximetry Medical Decision Making - Medical Decision Making This is a 27-year-old female who presented to the emergency department with chief complaint of low abdominal pain. Patient was diagnosed with a UTI earlier today. Patient describes abdominal pain as intermittent sharp and stabbing. While in the emergency department, patient stated that her pain had subsided. She only now complains of mild cramping. Abdomen has been soft and non-tender. No adnexal, cervical motion or uterine tenderness on speculum and pelvic exam. Vital signs are stable and patient has been afebrile. CBC did revealed a slightly elevated white count at 14.6 with a left shift at 10.1. CMP was unremarkable. UA did reveal large blood and many red blood cells, however patient is currently on her period. UA did also reveal large leukocyte esterase, many white blood cells and white blood cell clumps. X-ray KUB was obtained revealed no acute abnormalities. Patient will be treated for a UTI. Given Rocephin and 1 dose of Bactrim while in the emergency department. I recommended only taking the antibiotic I prescribed to her and to not take the antibiotic that was prescribed earlier today. I did speak with patient about CT scanning of the abdomen. At this time, patient declines. She states she will return to the emergency department if the pain returns or worsens. Patient is in no acute distress at this time and will be discharged home. She is in agreement with plan voices understanding. All questions answered. - Lab Data Result diagrams: 12/31/17 23:50 12/31/17 23:50 Lab Results 12/31/17 12/31/17 12/31/17 Range/Units 23:50 23:50 23:50 WBC 14.6 H (3.8-10.6) k/uL RBC 4.90 (3.80-5.40) m/uL Hgb 15.6 (11.4-16.0) gm/dL Hct 43.7 (34.0-46.0) % MCV 89.2 (80.0-100.0) fL MCH 31.8 (25.0-35.0) pg MCHC 35.6 (31.0-37.0) g/dL RDW 12.7 (11.5-15.5) % Plt Count 334 (150-450) k/uL Neutrophils % 69 % Lymphocytes % 19 % Monocytes % 6 % Eosinophils % 3 % Basophils % 1 % Neutrophils # 10.1 H (1.3-7.7) k/uL Lymphocytes # 2.8 (1.0-4.8) k/uL Monocytes # 0.9 (0-1.0) k/uL Eosinophils # 0.5 (0-0.7) k/uL Basophils # 0.1 (0-0.2) k/uL Sodium 141 (137-145) mmol/L Potassium 4.5 (3.5-5.1) mmol/L Chloride 104 (98-107) mmol/L Carbon Dioxide 22 (22-30) mmol/L Anion Gap 15 mmol/L BUN 9 (7-17) mg/dL Creatinine 0.60 (0.52-1.04) mg/dL Est GFR (CKD-EPI)AfAm >90 (>60 ml/min/1.73 sqM) Est GFR (CKD-EPI)NonAf >90 (>60 ml/min/1.73 sqM) Glucose 79 (74-99) mg/dL Calcium 9.9 (8.4-10.2) mg/dL Total Bilirubin 0.5 (0.2-1.3) mg/dL AST 22 (14-36) U/L ALT 29 (9-52) U/L Alkaline Phosphatase 91 (38-126) U/L Total Protein 7.1 (6.3-8.2) g/dL Albumin 4.4 (3.5-5.0) g/dL Amylase 37 (30-110) U/L Lipase 24 (23-300) U/L Urine Color Yellow Urine Appearance Cloudy H (Clear) Urine pH 7.0 (5.0-8.0) Ur Specific [place] 1.010 (1.001-1.035) Urine Protein 1+ H (Negative) Urine Glucose (UA) Negative (Negative) Urine Ketones Negative (Negative) Urine Blood Large H (Negative) Urine Nitrite Negative (Negative) Urine Bilirubin Negative (Negative) Urine Urobilinogen <2.0 (<2.0) mg/dL Ur Leukocyte Esterase Large H (Negative) Urine RBC >182 H (0-5) /hpf Urine WBC >182 H (0-5) /hpf Urine WBC Clumps Many H (None) /hpf Ur Squamous Epith Cells 5 H (0-4) /hpf Urine Mucus Rare H (None) /hpf Urine HCG, Qual (Not Detectd) 12/31/17 Range/Units 23:50 WBC (3.8-10.6) k/uL RBC (3.80-5.40) m/uL Hgb (11.4-16.0) gm/dL Hct (34.0-46.0) % MCV (80.0-100.0) fL MCH (25.0-35.0) pg MCHC (31.0-37.0) g/dL RDW (11.5-15.5) % Plt Count (150-450) k/uL Neutrophils % % Lymphocytes % % Monocytes % % Eosinophils % % Basophils % % Neutrophils # (1.3-7.7) k/uL Lymphocytes # (1.0-4.8) k/uL Monocytes # (0-1.0) k/uL Eosinophils # (0-0.7) k/uL Basophils # (0-0.2) k/uL Sodium (137-145) mmol/L Potassium (3.5-5.1) mmol/L Chloride (98-107) mmol/L Carbon Dioxide (22-30) mmol/L Anion Gap mmol/L BUN (7-17) mg/dL Creatinine (0.52-1.04) mg/dL Est GFR (CKD-EPI)AfAm (>60 ml/min/1.73 sqM) Est GFR (CKD-EPI)NonAf (>60 ml/min/1.73 sqM) Glucose (74-99) mg/dL Calcium (8.4-10.2) mg/dL Total Bilirubin (0.2-1.3) mg/dL AST (14-36) U/L ALT (9-52) U/L Alkaline Phosphatase (38-126) U/L Total Protein (6.3-8.2) g/dL Albumin (3.5-5.0) g/dL Amylase (30-110) U/L Lipase (23-300) U/L Urine Color Urine Appearance (Clear) Urine pH (5.0-8.0) Ur Specific [place] (1.001-1.035) Urine Protein (Negative) Urine Glucose (UA) (Negative) Urine Ketones (Negative) Urine Blood (Negative) Urine Nitrite (Negative) Urine Bilirubin (Negative) Urine Urobilinogen (<2.0) mg/dL Ur Leukocyte Esterase (Negative) Urine RBC (0-5) /hpf Urine WBC (0-5) /hpf Urine WBC Clumps (None) /hpf Ur Squamous Epith Cells (0-4) /hpf Urine Mucus (None) /hpf Urine HCG, Qual Not Detected (Not Detectd) - Radiology Data Radiology results: report reviewed X-ray KUB impression: Nonacute abdomen.. Disposition Clinical Impression: Urinary tract infection, Abdominal pain Disposition: HOME SELF-CARE Condition: Good Instructions: Urinary Tract Infection in Women (ED), Acute Abdominal Pain (ED) Additional Instructions: Please take medications as prescribed. Please follow up with primary care provider within 1-2 days. Return to emergency department if symptoms should worsen or any concerns arise. Prescriptions: Sulfamethox-Tmp 800-160Mg [Bactrim DS 800-160 mg] 1 tab PO Q12HR #14 tab Is patient prescribed a controlled substance at d/c from ED?: No Referrals: Maurizio Sanchez MD [Primary Care Provider] - 1-2 days Time of Disposition: 01:25
--- NOTE | 2018-01-01 00:29 | XR ---
EXAMINATION TYPE: XR KUB DATE OF EXAM: 01/01/2018 COMPARISON: NONE HISTORY: Abdominal pain TECHNIQUE: 2 views FINDINGS: Bowel gas pattern is normal. There is no sign of intestinal obstruction or pneumoperitoneum . Fecal pattern is normal. There is no evidence of a mass. There are no pathologic calcifications ove r the kidneys. Lung bases are clear. IMPRESSION: Nonacute abdomen.
[2018-01-01 00:56] LABS: Basophils # (A) 0.1 k/uL (0-0.2); Basophils % (A) 1 %; Eosinophils # (A) 0.5 k/uL (0-0.7); Eosinophils % (A) 3 %; HCT 43.7 % (34.0-46.0); HGB 15.6 gm/dL (11.4-16.0); Lymphocytes # (A) 2.8 k/uL (1.0-4.8); Lymphocytes % (A) 19 %; MCH 31.8 pg (25.0-35.0); MCHC 35.6 g/dL (31.0-37.0); MCV 89.2 fL (80.0-100.0); Mean Platelet Volume 7.6; Monocytes # (A) 0.9 k/uL (0-1.0); Monocytes % (A) 6 %; Neutrophils # (A) 10.1 k/uL (1.3-7.7); Neutrophils % (A) 69 %; Platelet Count 334 k/uL (150-450); RDW 12.7 % (11.5-15.5); WBC 14.6 k/uL (3.8-10.6)
[2018-01-01 01:02] LABS: Appearance,Urine Cloudy (Clear); Bilirubin,Urine Negative (Negative); Blood,Urine Large (Negative); Color,Urine Yellow; Glucose,Urine (UA) Negative (Negative); Ketones,Urine Negative (Negative); Leukocyte Esterase,Urine Large (Negative); Mucus,Urine Rare /hpf; Nitrite,Urine Negative (Negative); Protein,Urine 1+ (Negative); RBC,Urine >182 /hpf (0-5); Squamous Epithelial Cell,Urine 5 /hpf (0-4); Urobilinogen,Urine <2.0 mg/dL (<2.0); WBC,Urine >182 /hpf (0-5)
[2018-01-01 01:07] LABS: ALT 29 U/L (9-52); AST 22 U/L (14-36); Albumin 4.4 g/dL (3.5-5.0); Alkaline Phosphatase 91 U/L (38-126); Amylase 37 U/L (30-110); Anion Gap 15 mmol/L; Blood Urea Nitrogen 9 mg/dL (7-17); Calcium 9.9 mg/dL (8.4-10.2); Carbon Dioxide 22 mmol/L (22-30); Chloride 104 mmol/L (98-107); Glucose 79 mg/dL (74-99); Lipase 24 U/L (23-300); Potassium 4.5 mmol/L (3.5-5.1); Sodium 141 mmol/L (137-145); Total Bilirubin 0.5 mg/dL (0.2-1.3); Total Protein 7.1 g/dL (6.3-8.2)
[2018-01-01] MEDS ORDERED: cefTRIAXone IN SWFI 1,000 MG/10 ML SYRINGE IVP STA (01:18)
[2018-01-01] MEDS ORDERED: SULFAMETHOX-TMP 800-160MG 1 EACH TAB PO STA (01:19)
[2018-01-01 01:40] VITALS: BP 123/65; PULSE 87; RESP 18; TEMP 97
== END 2018-01-01 01:40 | disposition home or self-care (01) ==
LOC: EC 23:26
DX: N39.0 Urinary tract infection, site not specified (principal); Z87.891 Personal history of nicotine dependence; Z53.29 Procedure and treatment not carried out because of patient's decision for other reasons; Z88.7 Allergy status to serum and vaccine
CPT/HCPCS: 36415; 80053; 82150; 83690; 85025; 81001; 81025; 74018; 99284; 96374; J0696

== ENCOUNTER 2019-01-09 16:30 | Emergency (ER) | payer OTHER ==
[2019-01-09 17:00] VITALS: RESP 16; TEMP 99
[2019-01-09 17:24] LABS: Appearance,Urine Cloudy (Clear); Bacteria,Urine Few /hpf; Bilirubin,Urine Negative (Negative); Blood,Urine Moderate (Negative); Color,Urine Yellow; Glucose,Urine (UA) Negative (Negative); Ketones,Urine Negative (Negative); Leukocyte Esterase,Urine Large (Negative); Nitrite,Urine Positive (Negative); PH, Urine 6.5 (5.0-8.0); Protein,Urine 1+ (Negative); RBC,Urine 36 /hpf (0-5); Specific Gravity,Urine 1.015 (1.001-1.035); Urobilinogen,Urine <2.0 mg/dL (<2.0)
[2019-01-09] MEDS ORDERED: SODIUM CHLORIDE 0.9% 2,000 ML IV STA (17:51)
[2019-01-09] MEDS ORDERED: CEPHALEXIN 500 MG CAP PO STA (17:57)
--- NOTE | 2019-01-09 17:59 | ED ---
Abdominal Pain HPI - General Chief Complaint: Abdominal Pain Stated Complaint: Med Exp/Poss Kidney Stone Time Seen by Provider: 01/09/19 17:33 Source: patient, RN notes reviewed, old records reviewed Mode of arrival: ambulatory Limitations: no limitations - History of Present Illness Initial Comments: This is a 28-year-old female the ER for evaluation. For evaluation of dysuria. History is reviewed pain. No fevers. No nausea vomiting. No medical history no diabetes no history of cancer. Patient has 2 kidneys. No recent travel history no sick contacts. Patient is drinking in bed MD Complaint: abdominal pain -: days(s) Location: suprapubic Radiation: none Migration to: suprapubic Severity: mild Severity scale (1-10): 3 Quality: cramping Consistency: intermittent Improves With: nothing Associated Symptoms: dysuria - Related Data Home Medications Medication Instructions Recorded Confirmed Beclomethasone Dipropionate [Qvar 1 puff INHALATION 10/14/18 10/14/18 40 mcg Redihaler] Montelukast [Singulair] 10 mg PO DAILY 10/14/18 10/14/18 Previous Rx's Medication Instructions Recorded Cephalexin [Keflex] 500 mg PO Q8HR #42 cap 01/09/19 Allergies Allergy/AdvReac Type Severity Reaction Status Date / Time tetanus and diphtheria Allergy Unknown Verified 01/09/19 17:00 toxoids Childhood [tetanus & diphtheria toxoids] Review of Systems ROS Statement: Those systems with pertinent positive or pertinent negative responses have been documented in the HPI. ROS Other: All systems not noted in ROS Statement are negative. Past Medical History Past Medical History: Asthma Additional Past Medical History / Comment(s): DURING HER HAD HYPERTENSION AND GESTATIONAL DM. ECZEMA, LOW THYROID NOT DR WATCHING WILL RETEST IN FEW MONHTS-NO MEDS TAKEN YET, ANXIETY. CONTROL IMPLANT IN LT ARM History of Any Multi-Drug Resistant Organisms: None Reported Past Surgical History: Section, Cholecystectomy Additional Past Surgical History / Comment(s): TOOTH EXTRACTIONS Past Anesthesia/Blood Transfusion Reactions: No Reported Reaction Past Psychological History: Anxiety Smoking Status: Former smoker Past Alcohol Use History: Occasional Past Drug Use History: None Reported - Past Family History Father Family Medical History: Coronary Artery Disease (CAD), Hyperlipidemia Additional Family Medical History / Comment(s): SINUS TACHYCARDIA. DAD'S MOM FROM AAA Mother Family Medical History: Asthma Additional Family Medical History / Comment(s): DDD, HIATAL HERNIA. SEASONAL ALLERGIES General Exam Limitations: no limitations General appearance: alert, in no apparent distress Head exam: Present: atraumatic, normocephalic, normal inspection Eye exam: Present: normal appearance, PERRL, EOMI. Absent: scleral icterus, conjunctival injection, periorbital swelling ENT exam: Present: normal exam, mucous membranes moist Neck exam: Present: normal inspection. Absent: tenderness, meningismus, lymphadenopathy Respiratory exam: Present: normal lung sounds bilaterally. Absent: respiratory distress, wheezes, rales, rhonchi, stridor Cardiovascular Exam: Present: regular rate, normal rhythm, normal heart sounds. Absent: systolic murmur, diastolic murmur, rubs, gallop, clicks GI/Abdominal exam: Present: soft, normal bowel sounds. Absent: distended, tenderness, guarding, rebound, rigid Extremities exam: Present: normal inspection, full ROM, normal capillary refill. Absent: tenderness, pedal edema, joint swelling, calf tenderness Back exam: Present: normal inspection Neurological exam: Present: alert, oriented X3, CN II-XII intact Psychiatric exam: Present: normal affect, normal mood Skin exam: Present: warm, dry, intact, normal color. Absent: rash Course Vital Signs 01/09/19 16:56 Temperature 99.0 F Pulse Rate 92 Respiratory 16 Rate Blood Pressure 154/101 O2 Sat by Pulse 97 Oximetry Medical Decision Making - Medical Decision Making 28 female the ER with dysuria, no significant signs of probable fever. Patient's tolerating oral intake can be discharged home - Lab Data Lab Results 01/09/19 Range/Units 17:02 Urine Color Yellow Urine Appearance Cloudy H (Clear) Urine pH 6.5 (5.0-8.0) Ur Specific [place] 1.015 (1.001-1.035) Urine Protein 1+ H (Negative) Urine Glucose (UA) Negative (Negative) Urine Ketones Negative (Negative) Urine Blood Moderate H (Negative) Urine Nitrite Positive H (Negative) Urine Bilirubin Negative (Negative) Urine Urobilinogen <2.0 (<2.0) mg/dL Ur Leukocyte Esterase Large H (Negative) Urine RBC 36 H (0-5) /hpf Urine WBC 147 H (0-5) /hpf Urine WBC Clumps Many H (None) /hpf Urine Bacteria Few H (None) /hpf Disposition Clinical Impression: UTI (urinary tract infection), Pyelonephritis Disposition: HOME SELF-CARE Condition: Good Instructions (If sedation given, give patient instructions): Urinary Tract Infection in Women (ED), Kidney Infection (ED) Prescriptions: Cephalexin [Keflex] 500 mg PO Q8HR #42 cap Is patient prescribed a controlled substance at d/c from ED?: No Referrals: Maurizio Sanchez MD [Primary Care Provider] - 1-2 days
[2019-01-09 21:16] VITALS: BP 124/76; PULSE 72
== END 2019-01-09 21:16 | disposition home or self-care (01) ==
LOC: EC 16:30
DX: N12 Tubulo-interstitial nephritis, not specified as acute or chronic (principal); J45.909 Unspecified asthma, uncomplicated; Z87.891 Personal history of nicotine dependence; Z88.7 Allergy status to serum and vaccine; Z79.51 Long term (current) use of inhaled steroids; Z79.899 Other long term (current) drug therapy; Z90.49 Acquired absence of other specified parts of digestive tract
CPT/HCPCS: 99284; 96365; 96361 ×2; 81001; 87086; 87077; 87186; J0696

== ENCOUNTER 2019-03-13 23:57 | Emergency (ER) | payer OTHER ==
[2019-03-14 01:12] LABS: Appearance,Urine Turbid (Clear); Bilirubin,Urine Negative (Negative); Blood,Urine Moderate (Negative); Color,Urine Yellow; Glucose,Urine (UA) Negative (Negative); Ketones,Urine Negative (Negative); Leukocyte Esterase,Urine Large (Negative); Mucus,Urine Occasional /hpf; Nitrite,Urine Negative (Negative); Protein,Urine 2+ (Negative); RBC,Urine >182 /hpf (0-5); Specific Gravity,Urine 1.014 (1.001-1.035); Squamous Epithelial Cell,Urine 5 /hpf (0-4); Urobilinogen,Urine <2.0 mg/dL (<2.0); WBC,Urine >182 /hpf (0-5)
--- NOTE | 2019-03-14 01:20 | XR ---
INDICATION: Abdominal pain COMPARISON: Abdominal radiograph 01/01/18 FINDINGS: 2 upright AP views of the abdomen and pelvis are provided. The bowel gas pattern is nonspecific and nonobstructive. No obvious soft tissue mass or abnormal abdominal calcifications are noted. Regional skeleton appears intact. IMPRESSION: Nonspecific, nonobstructive bowel gas pattern.
[2019-03-14 01:34] VITALS: RESP 18
[2019-03-14] MEDS ORDERED: KETOROLAC 30 MG/ML 1 ML VIAL IVP STA (01:37)
[2019-03-14] MEDS ORDERED: ONDANSETRON 4 MG/2 ML VIAL IVP STA (01:37)
[2019-03-14 02:08] LABS: Basophils # (A) 0.1 k/uL (0-0.2); Basophils % (A) 1 %; Eosinophils # (A) 1.2 k/uL (0-0.7); Eosinophils % (A) 7 %; HCT 44.2 % (34.0-46.0); HGB 15.5 gm/dL (11.4-16.0); Lymphocytes # (A) 1.9 k/uL (1.0-4.8); Lymphocytes % (A) 11 %; MCH 32.5 pg (25.0-35.0); MCHC 35.1 g/dL (31.0-37.0); MCV 92.7 fL (80.0-100.0); Mean Platelet Volume 7.6; Monocytes # (A) 0.6 k/uL (0-1.0); Monocytes % (A) 4 %; Neutrophils # (A) 12.4 k/uL (1.3-7.7); Neutrophils % (A) 76 %; Platelet Count 302 k/uL (150-450); RBC 4.77 m/uL (3.80-5.40); RDW 12.4 % (11.5-15.5); WBC 16.3 k/uL (3.8-10.6)
[2019-03-14 02:21] LABS: ALT 14 U/L (9-52); AST 16 U/L (14-36); African American GFR (CKD) >90 (>60 ml/min/1.73 sqM); Albumin 4.3 g/dL (3.5-5.0); Alkaline Phosphatase 82 U/L (38-126); Amylase 42 U/L (30-110); Anion Gap 12 mmol/L; Blood Urea Nitrogen 10 mg/dL (7-17); Calcium 9.7 mg/dL (8.4-10.2); Carbon Dioxide 21 mmol/L (22-30); Chloride 107 mmol/L (98-107); Glucose 86 mg/dL (74-99); Non-African American GFR(CKD) >90 (>60 ml/min/1.73 sqM); Potassium 3.8 mmol/L (3.5-5.1); Sodium 140 mmol/L (137-145); Total Bilirubin 0.4 mg/dL (0.2-1.3); Total Protein 7.2 g/dL (6.3-8.2)
--- NOTE | 2019-03-14 02:28 | CT ---
INDICATION: Abdominal pain TECHNIQUE: CT acquisition is performed through the abdomen and pelvis. Sagittal and coronal reformatted images are provided. No IV contrast is administered. DOSE INFORMATION: DLP 868.4 mGy-cm. This CT exam was performed using one or more of the following dose reduction techniques: automated exposure control, adjustment of the mA and/or kV according to patient size, and/or use of iterative reconstruction technique. COMPARISON: None. FINDINGS: The lung bases are clear. The gallbladder surgically absent. The unenhanced appearance of the liver, pancreas, adrenal glands, and spleen is unremarkable. The kidneys are similar in size and contour. A 1 mm stone is suggested in the proximal right ureter at the ureteropelvic junction resulting in minimal prominence of the right renal pelvis. There is associated stranding around the proximal right ureter. A few additional punctate nonobstructing stones are suggested in the right kidney. There is a 2 mm nonobstructing left kidney stone. There is no hydronephrosis. Aorta and IVC are normal. There is no adenopathy. The appendix is normal. There are no obstructive or inflammatory changes of the bowel. There is mild haziness of the urinary bladder wall. Uterus is unremarkable. There is a fat-containing umbilical hernia. There are no acute osseous findings. IMPRESSION: 1. There is a possible 1 mm stone in the proximal right ureter at the ureteropelvic junction resulting in minimal prominence of the right renal pelvis. 2. Additional bilateral nonobstructing kidney stones, the largest in the left kidney measuring 2 mm. 3. Haziness of the urinary bladder wall, correlate with urinalysis for possible cystitis. 4. Fat-containing umbilical hernia.
[2019-03-14] MEDS ORDERED: SODIUM CHLORIDE 0.9% 1,000 ML IV ONE (02:46)
[2019-03-14] MEDS ORDERED: TAMSULOSIN 0.4 MG CAP.ER.24H PO STA (02:46)
--- NOTE | 2019-03-14 03:13 | ED ---
Abdominal Pain HPI - General Chief Complaint: Abdominal Pain Stated Complaint: Abdominal/Back Pain Time Seen by Provider: 03/14/19 01:20 Source: patient Mode of arrival: ambulatory Limitations: no limitations - History of Present Illness Initial Comments: 28-year-old female patient presents to the emergency department today for evaluation of lower abdominal and right flank pain. Patient states that symptoms started a couple of days ago. States that she is having dysuria, urinary urgency, urinary frequency. Denies any fever or chills. States she has had some nausea with no vomiting. Patient states that she has had urinary tract infections in the past and felt similar. States she did notice blood in her urine today. Denies any chance of . Denies any history of abdominal surgery. Patient denies any recent rash, shortness breath, chest pain, diarrhea, constipation, back pain, numbness, tingling, dizziness, weakness, headache, vis ual changes, or any other complaints. - Related Data Home Medications Medication Instructions Recorded Confirmed Beclomethasone Dipropionate [Qvar 1 puff INHALATION 10/14/18 10/14/18 40 mcg Redihaler] Montelukast [Singulair] 10 mg PO DAILY 10/14/18 10/14/18 Previous Rx's Medication Instructions Recorded Cephalexin [Keflex] 500 mg PO Q8HR #42 cap 01/09/19 Cephalexin [Keflex] 500 mg PO Q6HR #40 cap 03/14/19 Ibuprofen [Motrin] 600 mg PO Q8HR PRN #30 tab 03/14/19 Ondansetron [Zofran ODT] 4 mg PO Q8HR PRN #20 tab 03/14/19 Tamsulosin HCl [Flomax] 0.4 mg PO DAILY #7 cap 03/14/19 Allergies Allergy/AdvReac Type Severity Reaction Status Date / Time tetanus and diphtheria Allergy Unknown Verified 03/14/19 00:11 toxoids Childhood [tetanus & diphtheria toxoids] Review of Systems ROS Statement: Those systems with pertinent positive or pertinent negative responses have been documented in the HPI. ROS Other: All systems not noted in ROS Statement are negative. Past Medical History Past Medical History: Asthma Additional Past Medical History / Comment(s): DURING HER HAD HYPERTENSION AND GESTATIONAL DM. ECZEMA, LOW THYROID NOT DR WATCHING WILL RETEST IN FEW MONHTS-NO MEDS TAKEN YET, ANXIETY. CONTROL IMPLANT IN LT ARM History of Any Multi-Drug Resistant Organisms: None Reported Past Surgical History: Section, Cholecystectomy Additional Past Surgical History / Comment(s): TOOTH EXTRACTIONS Past Anesthesia/Blood Transfusion Reactions: No Reported Reaction Past Psychological History: Anxiety Smoking Status: Former smoker Past Alcohol Use History: Occasional Past Drug Use History: None Reported - Past Family History Father Family Medical History: Coronary Artery Disease (CAD), Hyperlipidemia Additional Family Medical History / Comment(s): SINUS TACHYCARDIA. DAD'S MOM FROM AAA Mother Family Medical History: Asthma Additional Family Medical History / Comment(s): DDD, HIATAL HERNIA. SEASONAL ALLERGIES General Exam Limitations: no limitations General appearance: alert, in no apparent distress, other (This is a well- developed, well-nourished adult female patient in no acute distress. Vital signs upon presentation are temperature 99.0F, pulse 83, respirations 22, blood pressure 164/119, pulse ox 99% on room air.) Eye exam: Present: normal appearance, PERRL, EOMI. Absent: scleral icterus, conjunctival injection, periorbital swelling ENT exam: Present: normal exam, normal oropharynx, mucous membranes moist Respiratory exam: Present: normal lung sounds bilaterally. Absent: respiratory distress, wheezes, rales, rhonchi, stridor Cardiovascular Exam: Present: regular rate, normal rhythm, normal heart sounds. Absent: systolic murmur, diastolic murmur, rubs, gallop, clicks GI/Abdominal exam: Present: soft, tenderness (Suprapubic tenderness), normal lizet wel sounds. Absent: distended, guarding, rebound, rigid Back exam: Present: normal inspection, CVA tenderness (R). Absent: CVA tenderness (L) Neurological exam: Present: alert, oriented X3, CN II-XII intact Psychiatric exam: Present: normal affect, normal mood Skin exam: Present: warm, dry, intact, normal color. Absent: rash Course Vital Signs 03/14/19 03/14/19 03/14/19 00:09 01:31 02:36 Temperature 99.0 F 99.2 F 98.4 F Pulse Rate 83 74 83 Respiratory 22 18 18 Rate Blood Pressure 164/119 155/110 115/65 O2 Sat by Pulse 99 97 97 Oximetry 03/14/19 03:39 Temperature 98.3 F Pulse Rate 76 Respiratory 18 Rate Blood Pressure 117/73 O2 Sat by Pulse 94 L Oximetry Medical Decision Making - Medical Decision Making 28 year-old female patient presented to the emergency department today for evaluation of lower abdominal pain and right flank pain. Physical examination did reveal some suprapubic tenderness and right CVA tenderness. She has mildly elevated temperature 99.2F. Labs reviewed and showed an elevated white blood cell count at 16.3 with a neutrophil count at 12.4. Urinalysis shows turbid appearance with 2+ protein, moderate blood, large leukocyte esterase, greater than 182 red blood cells, greater 182 white blood cells, many white blood cell clumps, 5 squamous epithelial cells, occasional mucous. HCG was negative. CT abdomen and pelvis was obtained and did show 1 L stone in the right UPJ and bladder findings consistent with cystitis. Did discuss findings and results with the patient. She'll be given 1 dose of IV Rocephin here in the emergency department. She'll be discharged home with prescription for antibiotics, pain medication, and Flomax. She is instructed to follow-up with her primary care physician for recheck in 1-2 days. She is instructed to follow-up with urology as needed. Return parameters were discussed in detail. She verbalizes understanding and agrees with this plan. - Lab Data Result diagrams: 03/14/19 01:17 03/14/19 01:17 Lab Results 03/14/19 03/14/19 03/14/19 Range/Units 00:15 00:15 01:17 WBC (3.8-10.6) k/uL RBC (3.80-5.40) m/uL Hgb (11.4-16.0) gm/dL Hct (34.0-46.0) % MCV (80.0-100.0) fL MCH (25.0-35.0) pg MCHC (31.0-37.0) g/dL RDW (11.5-15.5) % Plt Count (150-450) k/uL Neutrophils % % Lymphocytes % % Monocytes % % Eosinophils % % Basophils % % Neutrophils # (1.3-7.7) k/uL Lymphocytes # (1.0-4.8) k/uL Monocytes # (0-1.0) k/uL Eosinophils # (0-0.7) k/uL Basophils # (0-0.2) k/uL Sodium 140 (137-145) mmol/L Potassium 3.8 (3.5-5.1) mmol/L Chloride 107 (98-107) mmol/L Carbon Dioxide 21 L (22-30) mmol/L Anion Gap 12 mmol/L BUN 10 (7-17) mg/dL Creatinine 0.55 (0.52-1.04) mg/dL Est GFR (CKD-EPI)AfAm >90 (>60 ml/min/1.73 sqM) Est GFR (CKD-EPI)NonAf >90 (>60 ml/min/1.73 sqM) Glucose 86 (74-99) mg/dL Calcium 9.7 (8.4-10.2) mg/dL Total Bilirubin 0.4 (0.2-1.3) mg/dL AST 16 (14-36) U/L ALT 14 (9-52) U/L Alkaline Phosphatase 82 (38-126) U/L Total Protein 7.2 (6.3-8.2) g/dL Albumin 4.3 (3.5-5.0) g/dL Amylase 42 (30-110) U/L Lipase 24 (23-300) U/L Urine Color Yellow Urine Appearance Turbid H (Clear) Urine pH 6.0 (5.0-8.0) Ur Specific [place] 1.014 (1.001-1.035) Urine Protein 2+ H (Negative) Urine Glucose (UA) Negative (Negative) Urine Ketones Negative (Negative) Urine Blood Moderate H (Negative) Urine Nitrite Negative (Negative) Urine Bilirubin Negative (Negative) Urine Urobilinogen <2.0 (<2.0) mg/dL Ur Leukocyte Esterase Large H (Negative) Urine RBC >182 H (0-5) /hpf Urine WBC >182 H (0-5) /hpf Urine WBC Clumps Many H (None) /hpf Ur Squamous Epith Cells 5 H (0-4) /hpf Urine Mucus Occasional H (None) /hpf Urine HCG, Qual Not Detected (Not Detectd) 03/14/19 Range/Units 01:17 WBC 16.3 H (3.8-10.6) k/uL RBC 4.77 (3.80-5.40) m/uL Hgb 15.5 (11.4-16.0) gm/dL Hct 44.2 (34.0-46.0) % MCV 92.7 (80.0-100.0) fL MCH 32.5 (25.0-35.0) pg MCHC 35.1 (31.0-37.0) g/dL RDW 12.4 (11.5-15.5) % Plt Count 302 (150-450) k/uL Neutrophils % 76 % Lymphocytes % 11 % Monocytes % 4 % Eosinophils % 7 % Basophils % 1 % Neutrophils # 12.4 H (1.3-7.7) k/uL Lymphocytes # 1.9 (1.0-4.8) k/uL Monocytes # 0.6 (0-1.0) k/uL Eosinophils # 1.2 H (0-0.7) k/uL Basophils # 0.1 (0-0.2) k/uL Sodium (137-145) mmol/L Potassium (3.5-5.1) mmol/L Chloride (98-107) mmol/L Carbon Dioxide (22-30) mmol/L Anion Gap mmol/L BUN (7-17) mg/dL Creatinine (0.52-1.04) mg/dL Est GFR (CKD-EPI)AfAm (>60 ml/min/1.73 sqM) Est GFR (CKD-EPI)NonAf (>60 ml/min/1.73 sqM) Glucose (74-99) mg/dL Calcium (8.4-10.2) mg/dL Total Bilirubin (0.2-1.3) mg/dL AST (14-36) U/L ALT (9-52) U/L Alkaline Phosphatase (38-126) U/L Total Protein (6.3-8.2) g/dL Albumin (3.5-5.0) g/dL Amylase (30-110) U/L Lipase (23-300) U/L Urine Color Urine Appearance (Clear) Urine pH (5.0-8.0) Ur Specific [place] (1.001-1.035) Urine Protein (Negative) Urine Glucose (UA) (Negative) Urine Ketones (Negative) Urine Blood (Negative) Urine Nitrite (Negative) Urine Bilirubin (Negative) Urine Urobilinogen (<2.0) mg/dL Ur Leukocyte Esterase (Negative) Urine RBC (0-5) /hpf Urine WBC (0-5) /hpf Urine WBC Clumps (None) /hpf Ur Squamous Epith Cells (0-4) /hpf Urine Mucus (None) /hpf Urine HCG, Qual (Not Detectd) - Radiology Data Radiology results: report reviewed, image reviewed KUB x-ray of the abdomen was obtained. Report was reviewed in its entirety. Impression by Dr. Aguillon shows nonspecific, nonobstructive bowel gas pattern. CT abdomen and pelvis without contrast was obtained. Report was reviewed in its entirety. Impression by Dr. Aguillon shows possible 1 mm stone at the proximal right ureter at the ureteropelvic junction resulting in minimal prominence of the right renal pelvis. Additional bilateral nonobstructing kidney stones, the largest in the left kidney measuring 2 mm. Haziness of the urinary bladder wall, correlate with urinalysis for possible cystitis. Fat-containing umbilical hernia. Disposition Clinical Impression: Kidney stone on right side, Urinary tract infection Disposition: HOME SELF-CARE Condition: Good Instructions (If sedation given, give patient instructions): Kidney Stones (ED), Urinary Tract Infection in Women (ED) Additional Instructions: Complete antibiotic prescription in full. Use other medications as needed. Follow up with urologist if necessary. Follow-up with your primary care physician for recheck in 1-2 days. Return to the emergency department imm ediately for any new, worsening, or concerning symptoms Prescriptions: Tamsulosin HCl [Flomax] 0.4 mg PO DAILY #7 cap Cephalexin [Keflex] 500 mg PO Q6HR #40 cap Ibuprofen [Motrin] 600 mg PO Q8HR PRN #30 tab PRN Reason: Pain Ondansetron [Zofran ODT] 4 mg PO Q8HR PRN #20 tab PRN Reason: Nausea Is patient prescribed a controlled substance at d/c from ED?: No Referrals: Maurizio Sanchez MD [Primary Care Provider] - 1-2 days Time of Disposition: 03:12
[2019-03-14 04:27] VITALS: BP 135/89; PULSE 79; TEMP 98.1
== END 2019-03-14 04:29 | disposition home or self-care (01) ==
LOC: EC 23:57
DX: N20.0 Calculus of kidney (principal); N39.0 Urinary tract infection, site not specified; J45.909 Unspecified asthma, uncomplicated; Z87.891 Personal history of nicotine dependence; Z88.7 Allergy status to serum and vaccine; Z79.51 Long term (current) use of inhaled steroids; Z79.899 Other long term (current) drug therapy; Z97.5 Presence of (intrauterine) contraceptive device; Z90.49 Acquired absence of other specified parts of digestive tract
CPT/HCPCS: 36415; 80053; 82150; 83690; 85025; 81001; 81025; 87086; 74018; 74176; 99284; 96365; 96375 ×2; 96361; J2405; J0696; J1885; 87077; 87186

== ENCOUNTER 2019-06-23 02:01 | Emergency (ER) | payer OTHER ==
[2019-06-23 02:53] LABS: Appearance,Urine Clear (Clear); Bilirubin,Urine Negative (Negative); Blood,Urine Negative (Negative); Color,Urine Light Yellow; Glucose,Urine (UA) Negative (Negative); Ketones,Urine Negative (Negative); Leukocyte Esterase,Urine Negative (Negative); Nitrite,Urine Negative (Negative); PH, Urine 6.5 (5.0-8.0); Protein,Urine Negative (Negative); Specific Gravity,Urine 1.008 (1.001-1.035); Urobilinogen,Urine <2.0 mg/dL (<2.0)
--- NOTE | 2019-06-23 03:01 | ED ---
Female Urogenital HPI - General Chief complaint: Urogenital Stated complaint: poss kidney infection Time Seen by Provider: 06/23/19 02:12 Source: patient Mode of arrival: ambulatory Limitations: no limitations - History of Present Illness MD Complaint: pelvic pain Onset/Timin -: hour(s) Location: suprapubic Radiation: non-radiating Severity: mild Quality: other (Pressure) Consistency: constant Improves with: none Worsens with: urination Patient : No Associated Symptoms: denies other symptoms - Related Data Sexually active: Yes Home Medications Medication Instructions Recorded Confirmed Beclomethasone Dipropionate [Qvar 1 puff INHALATION 10/14/18 10/14/18 40 mcg Redihaler] Montelukast [Singulair] 10 mg PO DAILY 10/14/18 10/14/18 Previous Rx's Medication Instructions Recorded Cephalexin [Keflex] 500 mg PO Q8HR #42 cap 01/09/19 Cephalexin [Keflex] 500 mg PO Q6HR #40 cap 03/14/19 Ibuprofen [Motrin] 600 mg PO Q8HR PRN #30 tab 03/14/19 Ondansetron [Zofran ODT] 4 mg PO Q8HR PRN #20 tab 03/14/19 Tamsulosin HCl [Flomax] 0.4 mg PO DAILY #7 cap 03/14/19 Allergies Allergy/AdvReac Type Severity Reaction Status Date / Time tetanus and diphtheria Allergy Unknown Verified 06/23/19 02:23 toxoids Childhood [tetanus & diphtheria toxoids] Review of Systems ROS Statement: Those systems with pertinent positive or pertinent negative responses have been documented in the HPI. ROS Other: All systems not noted in ROS Statement are negative. Constitutional: Denies: fever, chills Respiratory: Denies: cough, dyspnea Cardiovascular: Denies: chest pain, edema Gastrointestinal: Reports: abdominal pain. Denies: nausea, vomiting, diarrhea, constipation Genitourinary: Denies: dysuria, frequency, hematuria, discharge, abnormal menses Musculoskeletal: Denies: back pain Skin: Denies: rash Past Medical History Past Medical History: Asthma Additional Past Medical History / Comment(s): DURING HER HAD HYPERTENSION AND GESTATIONAL DM. ECZEMA, LOW THYROID NOT DR WATCHING WILL RETEST IN FEW MONHTS-NO MEDS TAKEN YET, ANXIETY. CONTROL IMPLANT IN LT ARM History of Any Multi-Drug Resistant Organisms: None Reported Past Surgical History: Section, Cholecystectomy Additional Past Surgical History / Comment(s): TOOTH EXTRACTIONS Past Anesthesia/Blood Transfusion Reactions: No Reported Reaction Past Psychological History: Anxiety Smoking Status: Former smoker Past Alcohol Use History: Occasional Past Drug Use History: None Reported - Past Family History Father Family Medical History: Coronary Artery Disease (CAD), Hyperlipidemia Additional Family Medical History / Comment(s): SINUS TACHYCARDIA. DAD'S MOM FROM AAA Mother Family Medical History: Asthma Additional Family Medical History / Comment(s): DDD, HIATAL HERNIA. SEASONAL ALLERGIES General Exam Limitations: no limitations General appearance: alert, in no apparent distress Head exam: Present: atraumatic, normocephalic Respiratory exam: Present: normal lung sounds bilaterally. Absent: respiratory distress, wheezes, rales, rhonchi, stridor Cardiovascular Exam: Present: regular rate, normal rhythm, normal heart sounds. Absent: systolic murmur, diastolic murmur, rubs, gallop GI/Abdominal exam: Present: soft, normal bowel sounds. Absent: distended, tenderness, guarding, rebound, rigid, mass, pulsatile mass, hernia External exam: Present: other (Declines exam) Extremities exam: Present: normal inspection Back exam: Present: normal inspection. Absent: CVA tenderness (R), CVA tenderness (L), vertebral tenderness Neurological exam: Present: alert Skin exam: Present: warm, dry, intact, normal color. Absent: rash Course Vital Signs 06/23/19 06/23/19 02:21 03:37 Temperature 97.9 F 97.8 F Pulse Rate 92 84 Respiratory 16 18 Rate Blood Pressure 157/100 142/92 O2 Sat by Pulse 96 98 Oximetry Medical Decision Making - Medical Decision Making Patient is 28-year-old woman concern for possible urinary tract infection, given her onset of suprapubic pain. 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 Discussed the importance of close follow-up. She understands she may return here at anytime to have gynecologic examination - Lab Data Lab Results 06/23/19 06/23/19 Range/Units 02:36 02:36 Urine Color Light Yellow Urine Appearance Clear (Clear) Urine pH 6.5 (5.0-8.0) Ur Specific [place] 1.008 (1.001-1.035) Urine Protein Negative (Negative) Urine Glucose (UA) Negative (Negative) Urine Ketones Negative (Negative) Urine Blood Negative (Negative) Urine Nitrite Negative (Negative) Urine Bilirubin Negative (Negative) Urine Urobilinogen <2.0 (<2.0) mg/dL Ur Leukocyte Esterase Negative (Negative) Urine HCG, Qual Not Detected (Not Detectd) Disposition Clinical Impression: Pain in female pelvis Disposition: HOME SELF-CARE Condition: Good Instructions (If sedation given, give patient instructions): Pelvic Pain in Women (ED) Is patient prescribed a controlled substance at d/c from ED?: No Referrals: Maurizio Sanchez MD [Primary Care Provider] - 1-2 days
[2019-06-23 03:38] VITALS: BP 142/92; PULSE 84; RESP 18; TEMP 97.8
== END 2019-06-23 03:38 | disposition home or self-care (01) ==
LOC: EC 02:01
DX: R10.2 Pelvic and perineal pain (principal); J45.909 Unspecified asthma, uncomplicated; Z87.891 Personal history of nicotine dependence; Z88.7 Allergy status to serum and vaccine; Z79.51 Long term (current) use of inhaled steroids; Z79.899 Other long term (current) drug therapy; Z90.49 Acquired absence of other specified parts of digestive tract; Z97.5 Presence of (intrauterine) contraceptive device; Z53.20 Procedure and treatment not carried out because of patient's decision for unspecified reasons
CPT/HCPCS: 81003; 81025; 99284

== ENCOUNTER 2019-08-04 12:23 | Emergency (ER) | payer OTHER ==
--- NOTE | 2019-08-04 13:08 | XR ---
EXAMINATION TYPE: XR elbow complete RT , 3 VIEWS DATE OF EXAM ORDERED: 08/04/2019 HISTORY: fall. COMPARISON: None. FINDINGS: No fracture, dislocation or elbow joint effusion is seen. IMPRESSION: NO ACUTE OSSEOUS LESION.
--- NOTE | 2019-08-04 13:41 | ED ---
Upper Extremity HPI - General Chief Complaint: Extremity Injury, Upper Stated Complaint: Arm injury Time Seen by Provider: 08/04/19 12:34 Source: patient, RN notes reviewed, old records reviewed Mode of arrival: ambulatory Limitations: no limitations - History of Present Illness Initial Comments: Meseret is a 29-year-old female, who presents emergency department today for evaluation for concerns for right elbow pain. Patient reports that last night she fell, she does not know exactly how she fell. She reports she's had pain with range of motion of her right elbow since that time. Patient states that she did not hit her head. Patient states that she is right-handed. She denies any peripheral paresthesias. She reports pain with supination and pronation of her elbow. - Related Data Home Medications Medication Instructions Recorded Confirmed Beclomethasone Dipropionate [Qvar 1 puff INHALATION 10/14/18 10/14/18 40 mcg Redihaler] Montelukast [Singulair] 10 mg PO DAILY 10/14/18 10/14/18 Previous Rx's Medication Instructions Recorded Cephalexin [Keflex] 500 mg PO Q8HR #42 cap 01/09/19 Cephalexin [Keflex] 500 mg PO Q6HR #40 cap 03/14/19 Ibuprofen [Motrin] 600 mg PO Q8HR PRN #30 tab 03/14/19 Ondansetron [Zofran ODT] 4 mg PO Q8HR PRN #20 tab 03/14/19 Tamsulosin HCl [Flomax] 0.4 mg PO DAILY #7 cap 03/14/19 Ibuprofen [Motrin] 600 mg PO Q8HR PRN #20 tab 08/04/19 Allergies Allergy/AdvReac Type Severity Reaction Status Date / Time tetanus and diphtheria Allergy Unknown Verified 08/04/19 12:31 toxoids Childhood [tetanus & diphtheria toxoids] Review of Systems ROS Statement: Those systems with pertinent positive or pertinent negative responses have been documented in the HPI. ROS Other: All systems not noted in ROS Statement are negative. Past Medical History Past Medical History: Asthma Additional Past Medical History / Comment(s): DURING HER HAD HYPE RTENSION AND GESTATIONAL DM. ECZEMA, LOW THYROID NOT DR WATCHING WILL RETEST IN FEW MONHTS-NO MEDS TAKEN YET, ANXIETY. CONTROL IMPLANT IN LT ARM History of Any Multi-Drug Resistant Organisms: None Reported Past Surgical History: Section, Cholecystectomy Additional Past Surgical History / Comment(s): TOOTH EXTRACTIONS Past Anesthesia/Blood Transfusion Reactions: No Reported Reaction Past Psychological History: Anxiety Smoking Status: Current every day smoker Past Alcohol Use History: Occasional Past Drug Use History: None Reported - Past Family History Father Family Medical History: Coronary Artery Disease (CAD), Hyperlipidemia Additional Family Medical History / Comment(s): SINUS TACHYCARDIA. DAD'S MOM FROM AAA Mother Family Medical History: Asthma Additional Family Medical History / Comment(s): DDD, HIATAL HERNIA. SEASONAL ALLERGIES General Exam - General Exam Comments Initial Comments: 29-year-old female. Alert and oriented 3. Patient appears in no significant distress at this time. Limitations: no limitations General appearance: alert, in no apparent distress Head exam: Present: atraumatic, normocephalic, normal inspection Eye exam: Present: normal appearance, PERRL, EOMI. Absent: scleral icterus, conjunctival injection, periorbital swelling ENT exam: Present: normal exam, mucous membranes moist Neck exam: Present: normal inspection. Absent: tenderness, meningismus, lymphadenopathy Respiratory exam: Present: normal lung sounds bilaterally. Absent: respiratory distress, wheezes, rales, rhonchi, stridor Cardiovascular Exam: Present: regular rate, normal rhythm, normal heart sounds. Absent: systolic murmur, diastolic murmur, rubs, gallop, clicks GI/Abdominal exam: Present: soft, normal bowel sounds. Absent: distended, tenderness, guarding, rebound, rigid Extremities exam: Present: normal inspection, full ROM, normal capillary refill, other (Patient has some swelling over the olecranon process. Patient has pain with pronation and supination of her right elbow. Patient has no significant contusion or abrasions at this time. Patient has full flexion and extension of the elbow.). Absent: tenderness, pedal edema, joint swelling, calf tenderness Back exam: Present: normal inspection Neurological exam: Present: alert, oriented X3, CN II-XII intact Psychiatric exam: Present: normal affect, normal mood Skin exam: Present: warm, dry, intact, normal color. Absent: rash Course Vital Signs 08/04/19 12:29 Temperature 98.9 F Pulse Rate 91 Respiratory 16 Rate Blood Pressure 131/87 O2 Sat by Pulse 95 Oximetry Procedures - Orthopedic Splinting/Casting Injury #1 Side: right Upper Extremity Injury Location: elbow Lower Extremity Immobilizer: Neptali wrap Additional Comments: She was reevaluated neurovascularly intact. Medical Decision Making - Medical Decision Making 29-year-old female presents today for evaluation for right elbow pain. Patient reports that she fell yesterday onto her right elbow. He complains some pain over the olecranon and pain with pronation and supination. Elbow x-ray was reviewed and negative for any fracture. Discussed likely ligamentous or muscle injury. Patient was given an Neptali wrap and a sling. I advised if she had persistent pain to follow-up with primary care doctor orthopedics. Patient is agreeable to treatment plan will comply. - Radiology Data Radiology results: report reviewed Treatment the right elbow shows normal appearance. No fracture. Disposition Clinical Impression: Elbow contusion, Elbow sprain Disposition: HOME SELF-CARE Condition: Good Instructions (If sedation given, give patient instructions): Elbow Sprain (ED) Additional Instructions: Advised to take Motrin or Tylenol for pain. Use The Neptali wrap and if he is a sling for support. Follow-up with orthopedic if symptoms continue to persist after a week. Prescriptions: Ibuprofen [Motrin] 600 mg PO Q8HR PRN #20 tab PRN Reason: Pain Is patient prescribed a controlled substance at d/c from ED?: No Referrals: Maurizio Sanchez MD [Primary Care Provider] - 1-2 days Caleb Harper DO [Doctor of Osteopathic Medicine] - 1-2 days Time of Disposition: 13:40
[2019-08-04 14:13] VITALS: BP 141/86; PULSE 82; RESP 18; TEMP 97.6
== END 2019-08-04 14:12 | disposition home or self-care (01) ==
LOC: EC 12:23
DX: S53.401A Unspecified sprain of right elbow, initial encounter (principal); J45.909 Unspecified asthma, uncomplicated; F17.200 Nicotine dependence, unspecified, uncomplicated; Z79.51 Long term (current) use of inhaled steroids; Z79.899 Other long term (current) drug therapy; Z88.7 Allergy status to serum and vaccine; W19.XXXA Unspecified fall, initial encounter
CPT/HCPCS: 99284